=== PATIENT | male | born 1940 | race Caucasian/White ===

== ENCOUNTER 2022-04-17 09:48 | Outpatient (CLI) | payer BC, SELFPAY ==
--- NOTE | 2022-04-17 10:15 | MR_ITS ---
[address] [address] Phone:?[phone] Fax:?[phone] Referring Physician Information: Bill Nash M.D. [address] [facility] [address] Phone:?[phone] Fax:?[phone] Patient:Curt Meyer D.O.B:?1940 Sex:?Male Phone:?[phone] [facility] MRN:?[id number] Exam Date:?04/17/2022 ? EXAM: MRI of the LEFT SHOULDER, without contrast CLINICAL: Left shoulder pain. Evaluate for rotator cuff tear. COMPARISONS: None available. TECHNICAL: MRI sequences of the left shoulder: Axials: PD, PDFS Coronals: PD, T2FS Sagittals: PDFS, T2 SEDATION: None. CONTRAST: None. FINDINGS: Rotator cuff: Supraspinatus/Infraspinatus: There is high-grade partial bursal surface tearing involving the anterior distal supraspinatus tendon involving approximately 75% of the tendon thickness as seen on coronal series 4 images 7-8, with near full- thickness tearing of the mid insertional fibers of the distal supraspinatus tendon on coronal series 4 image 9. Mild partial interstitial tearing of the posterior distal supraspinatus tendon on coronal series 4 images 10-11. There is mild tendinosis of the infraspinatus tendon, without significant tendon tear. No significant fatty atrophy of the muscle bellies. Teres minor: Advanced fatty atrophy of the muscle belly. No significant tendinosis or tendon tear. Subscapularis: There is moderate tendinosis and minimal superimposed partial interstitial tearing of the superior distal tendon seen on sagittal series 8 images 15-16. No significant fatty atrophy of the muscle belly. Bursae: Subacromial-subdeltoid: Moderate bursitis with prominent internal synovitis. Subcoracoid: No convincing subcoracoid bursal thickening/bursitis. Coracoacromial arch: Acromion morphology: Type I. No os acromiale. Acromiohumeral space: Within normal limits. Coracohumeral space: Within normal limits. Biceps tendon, long head: Mild tendinosis of the intra-articular tendon. No significant tendon tear or displacement. Moderate fluid about the imaged proximal extra-articular tendon with a tiny displaced body noted about the imaged proximal extra-articular tendon on axial series 3.2 images 54. Glenohumeral joint: Physiologic volume of joint fluid. Articular cartilage: High-grade/full-thickness chondral loss is seen to involve the glenoid and medial humeral head. Capsule: No convincing evidence of capsular thickening or injury. Labrum: Degenerative changes are seen throughout the entire glenoid labrum. No perilabral cyst identified. Bones: No suspicious marrow signal alteration, fracture or dislocation. Acromioclavicular joint: No acute injury, arthropathy, or inferior hypertrophy. IMPRESSION: 1. Tearing of the distal supraspinatus tendon as above, including high-grade partial bursal surface tearing of the anterior distal supraspinatus tendon and near full-thickness tearing involving the mid insertional fibers of the distal supraspinatus tendon. Mild infraspinatus tendinosis. 2. Moderate subscapularis tendinosis with minimal superimposed partial interstitial tearing of the superior tendon. Advanced fatty atrophy of the teres minor muscle. 3. Moderate subacromial/subdeltoid bursitis with prominent internal synovitis. 4. Mild tendinosis of the intra-articular long head biceps tendon. There is moderate fluid about the imaged proximal extra-articular tendon with a tiny displaced body noted about the imaged proximal extra-articular tendon. 5. High-grade/full-thickness chondral loss involving the glenohumeral joint as above. Degenerative changes throughout the glenoid labrum. JCZ Electronically signed on 04/17/2022 12:52:00 PM by New Mcgraw D.O.
== END 2022-04-17 09:49 | disposition home or self-care (01) ==
LOC: MRI 09:49
PROVIDERS: PCP Family Medicine; Visit Provider Orthopaedic Surgery Sports Medicine
DX: M25.512 Pain in left shoulder (principal); M75.102 Unspecified rotator cuff tear or rupture of left shoulder, not specified as traumatic; M75.22 Bicipital tendinitis, left shoulder; M75.52 Bursitis of left shoulder
CPT/HCPCS: 73221

== ENCOUNTER 2022-05-05 07:33 | Outpatient (CLI) | payer BC, SELFPAY | END 2022-05-05 07:34 | disposition home or self-care (01) | LOC: CT 07:37 | PROVIDERS: PCP Family Medicine; Visit Provider Orthopaedic Surgery Sports Medicine | DX: M19.012 Primary osteoarthritis, left shoulder (principal) | CPT/HCPCS: 73200 ==

== ENCOUNTER 2022-06-04 07:06 | Day surgery (SDC) | payer BC, SELFPAY ==
[2022-06-04] VITALS (23 sets, daily range): BP systolic 130–159; BP diastolic 75–104; PULSE 52–85; RESP 14–24; TEMP 35.8–36.9; O2SAT 95–100; BMI 36.5
[2022-06-04] MEDS: CELECOXIB 200 MG CAPSULE PO (07:25)
[2022-06-04] MEDS: ACETAMINOPHEN 500 MG TABLET 1000 MG PO ×2 (07:25→18:08)
[2022-06-04] MEDS: OXYCODONE (CR) 10 MG TAB.ER.12H PO (07:25)
[2022-06-04] MEDS: SODIUM CHLORIDE 0.9 % (FLUSH) 10 ML SYRINGE IVF (07:53)
[2022-06-04] MEDS: LACTATED RINGERS 1000 ML 1,000 ML 100 ML IV ×2 (07:55→09:54)
--- NOTE | 2022-06-04 08:19 | CRLHL7_ITS ---
For Patients: As a result of the Century Cures Act, medical imaging exams and procedure reports are released immediately into your electronic medical record. You may view this report before your referring provider. If you have questions, please contact your health care provider. Indication: Post op LT SHOULDER ARTHOPLASTY Technique: Three views left shoulder Findings/Impression: Hardware from a left shoulder arthroplasty is in satisfactory position. Bone alignment is normal. No sign of acute fracture. Postop changes are within normal limits. Dictated by Julian Hooks MD @ 06/04/2022 12:57:07 PM (Electronically Signed)
--- NOTE | 2022-06-04 08:46 | SUR.PREOP ---
TIME?OUT:?0848 PT/CORIE RN/Jason CASTELLON MDA?VERIFICATION?OF?SURGICAL?SITE,?PROCEDURE,?AND?CONSENT OBTAINED?PRIOR?TO?INVASIVE?PROCEDURE.
[2022-06-04] MEDS: MIDAZOLAM HCL 1 MG/ML inj IVP (08:50)
[2022-06-04] MEDS: fentaNYL 100 MCG/2 ML inj IVP (08:50)
--- NOTE | 2022-06-04 08:56 | P.NB_ITS ---
Nerve Block Nerve Block Time Seen by Provider: 08:57 Date Seen: 06/04/22 Type of block requested by surgeon for post-operative analgesia: supraclavicular Side: left Time out performed: Yes Verification of patient name: Yes Verification of date of : Yes Site marking: site marked Name of person performing procedure: Héctor Continuous monitoring Was continuous monitoring of O2 sat, B/P, director of patient financial services, recorded every 15 minutes?: Yes Procedure Checklist: sterile prep, needles and gloves Ultrasound guided. Images saved: Yes Medications given in 5ml increments after negative aspiration: Ropivicaine %: 0.5 mL: 20 Needle gauge: 22 Decadron (mg): 10 Precedex (mcg): 25 Patient tolerated procedure well: Yes Block Charges Block Charge (with Pro Fee): Brachial Plexus Use of Ultrasound Machine for Block: Yes- US Guidance/pain block
--- NOTE | 2022-06-04 09:26 | W.ANESCHARGE ---
Anesthesia Charges Start Date/Time Anesthesia Start Date: 06/04/22 Anesthesia Start Time: 09:27 Stop Date/Time Anesthesia Stop Date: 06/04/22 Anesthesia Stop Time: 12:33 Summary Emergency: No Extremes of Age: Over 71-CPT 21283
[2022-06-04] MEDS: CEFAZOLIN 2 GM in 0.9 % SODIUM CHLORIDE Mini-bag 100 ML IVPB ×2 (09:45→16:46)
[2022-06-04] MEDS: TRANEXAMIC ACID 100 MG/ML INJ 1000 MG IV (09:50)
--- NOTE | 2022-06-04 11:41 | P.ORPRC_ITS ---
Procedure Note Date of procedure: 06/04/22 Procedure: PREOPERATIVE DIAGNOSIS: 1. Left shoulder osteoarthrosis, primary, severe with fair rotator quality/integrity POSTOPERATIVE DIAGNOSIS: 1. Left shoulder osteoarthrosis, primary, severe with fair cuff tissue quality PROCEDURE: 1. Left reverse shoulder arthroplasty. SURGEON: Bill Nash MD. COMMUTATOR ASSEMBLER: Epi Chavez PA-C; Patrick CARLSON - Of note, a skilled porcelain buildup assistant was critical for this case to aid in patient positioning, tissue retraction, limb manipulation/positioning, retraction for glenoid exposure, which was challenging, awareness and protection of critical structures, and closure. ANESTHESIA: General plus supraclavicular block IMPLANTS: DJ0 surgical Altivate humeral stem size 12 standard shell, short with P2 porous coating vitamin E neutral poly small socket insert RSP glenoid base plate P2 porous coating with 4 perimeter locking screws 32 neutral glenosphere with retaining screw COMPLICATIONS: None evident INDICATIONS: The patient is a pleasant 81-year-old male who has experienced severe left shoulder pain and difficulty with use. Workup included imaging which revealed severe osteoarthrosis along with concern for rotator cuff quality. Physical exam was consistent with associated pain. Given the deformity, the dysfunction, and the pain, and failure of nonoperative management, recommendation was made for surgery. DESCRIPTION OF PROCEDURE: Following a thorough discussion of risks, benefits, and alternatives, consent was obtained and the left shoulder was marked. The patient was brought to the operating room and placed supine on the operating table. Induction of anesthesia was undertaken. 2 g IV Ancef and 1 g tranexamic acid was administered within 1 hr of incision preoperatively. Appropriate time- out was performed identifying proper patient, site, and procedure. The operative extremity was prepped and draped in the appropriate sterile fashion using ChloraPrep after the patient was positioned in the [facility] chair position with head in neutral alignment and all bony prominences well padded. A longitudinal incision was made for deltopectoral approach. Deltoid was retracted laterally. Cephalic vein was identified and retracted laterally as well. The vein was ligated due to bleeding distally. The clavipectoral fascia was identified and divided longitudinally staying lateral to the conjoined tendon / coracoid. The conjoined tendon was protected with a blunt Hohmann. The long head of biceps tendon was not encountered during this procedure. This would be consistent with a previous rupture. The upper 1/4 of the pectoralis major was also released from its insertion. The rotator cuff was inspected and found to have good integrity with the subscapularis but fair integrity with a supraspinatus], and a decision for a reverse shoulder arthroplasty was confirmed. A subscapularis cuff of tissue was left via tenotomy for later repair with the remaining subscapularis released in a subperiosteal fashion with the Bovie. This was tagged for later repair. The 3 sisters were cauterized. The upper subscapularis was released from the capsule with a curved Marina scissors towards the glenoid. The inferior subscapularis was divided from the capsular tissue on its caudal surface with particular caution for the axillary nerve. This was palpated anterior to the subscapularis both prior to and near the finish of the case. Inferior humeral head osteophytes were excised with caution taken throughout the case with regards to the axillary nerve. The humerus was dislocated, and humeral head cut completed. Then a protector plate was applied. We turned our attention to the glenoid. The humerus was retracted posteriorly. The subscap was protected anteriorly and the labrum/long head biceps origin was excised circumferentially. The capsule was released along the anterior and inferior portions of the glenoid cautiously with a Calvert elevator being careful not to penetrate deep. The glenoid had appropriate exposure, and was prepared with the cannulated system with a target of approximately 5-10? of inferior tilt and neutral anteversion (patient had 8? of retroversion initially). [Utilizing the match Point 3D printed guide, the guide pin was placed. The 3D printed jig removed and after placing the guide pin, the tap was placed followed by the glenoid reaming. The real base plate was opened, and inserted, and excellent compression/purchase was achieved with the central screw. Peripheral screws were then drilled, measured, and placed. The glenosphere was then placed consistent with the preoperative plan utilizing the above noted glenosphere. After securing the glenosphere with the locking, torque limited screw, attention was turned back to the humerus. A canal finder was placed followed by various reamers by hand. The real humeral stem was then opened and inserted with excellent metaphyseal fit and stability. Trial poly was placed and the shoulder reduced. Excellent reduction and stability achieved with appropriate tension on the conjoined tendon. At this stage, trial implants were removed, and the real implants inserted and the shoulder reduced. A 3 minute Betadine soak was performed followed by a thorough irrigation with normal saline. Subscapularis was repaired with #1 PDS to the cuff of tissue on the lesser tuberosity. Excellent reapproximation of tissue achieved. Hemostasis was found to be appropriate. The deltopectoral interval was reapproximated with 0 Vicryl, subcutaneous and subcuticular closure was then performed with number 2-0 Vicryl and 4-0 Monocryl, respectively. A skilled porcelain buildup assistant was critical for this case to aid in patient positioning, tissue retraction, limb manipulation/positioning, retraction for glenoid exposure, which was challenging, awareness and protection of critical structures, and closure. PLAN: 1. Sling at all times for the operative upper extremity. 2. AROM of elbow, forearm, wrist, and digits as tolerated. 3. PT/OT consults for education and assistance. 4. Social consult for discharge planning. 5. 23 hr perioperative antibiotics. 6. Early ambulation, and SCDs for DVT prophylaxis. 7. Admit to the hospital for the above 8. Analgesics p.r.n.
--- NOTE | 2022-06-04 12:32 | W.ANESCHARGE ---
Anesthesia Charges Start Date/Time Anesthesia Start Date: 06/04/22 Anesthesia Start Time: 09:27 Stop Date/Time Anesthesia Stop Date: 06/04/22 Anesthesia Stop Time: 12:33 Summary Emergency: No Extremes of Age: Over 71-CPT [address]4470
--- NOTE | 2022-06-04 15:05 | PC.NURSE ---
End of shift note: Patient was a post op at 1330 today for left total shoulder replacement. PIV is patent and inact. Incision is clean, dry and intact. Lung sounds are clear. Denies pain and nausea. Tolerating PO liquids and food so far. Bowel sounds hypoactive- LBM was this morning. Has not voided yet. Has not been out of bed yet. TEDs and SCDs in place. Fluids running. Plans to return home with tomorrow. CPAP was checked and set up by RT.
--- NOTE | 2022-06-04 15:44 | PM.IMCN1 ---
Date of Consult Consult date: 06/04/22 Requesting Physician: Orthopedics Primary Care Provider: Braden Ramirez MD Consult Narrative Reason for consult: Postoperative management of medical problems Narrative: Rodney Meyer is a 81 year old male admitted to the hospital for left total shoulder arthroplasty. Procedures performed by Dr. Nash on the day of admission. There were no operative complications. Postoperatively he is generally doing well. He reports no significant pain. He was chilled coming out of the operating room but has now warmed up. He has no nausea or dyspnea. Preoperative evaluation did not show any significant issues concerning the perioperative care. Review of Systems Narrative: He has had no recent illness or injury. No other health concerns today. No history of problems with anesthesia, bleeding or clotting. 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 They live in their own home. 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 Code status is full. He does not smoke but has a remote history of smoking, 25 pack years and quit over 10 years ago. He drinks approximately 1 alcoholic beverage per day. 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 Smoking Status: Former smoker What tobacco products do you use: cigarettes Smoking quit date/years: >15 years ago Do you use any of these nicotine containing products: None How often do you have a drink containing alcohol: 2-4 times a month Alcohol type: beer How many standard drinks containing alcohol do you have on a typical day: 1 or 2 AUDIT-C Alcohol total score: 2 Non-prescribed substance use: denies use Caffeine: Yes (coffee, 1 cup/am) Meds Home Medications and Allergies Home Medications Medication Instructions Recorded Confirmed Type aspirin 81 mg tablet,delayed 81 mg PO DAILY 04/07/22 06/04/22 History release evolocumab 140 mg/mL subcutaneous 140 mg subcut Q14D 04/07/22 06/04/22 History pen injector (Brad Celis) ezetimibe 10 mg tablet 10 mg PO DAILY 04/07/22 06/04/22 History gabapentin 300 mg capsule 300 mg PO TID 04/07/22 06/04/22 History hydrochlorothiazide 25 mg tablet 25 mg PO DAILY 04/07/22 06/04/22 History losartan 50 mg tablet 50 mg PO DAILY 04/07/22 06/04/22 History metoprolol succinate 25 mg 25 mg PO DAILY 04/07/22 06/04/22 History tablet,extended release 24 hr omeprazole 20 mg capsule,delayed 20 mg PO DAILY 04/07/22 06/04/22 History release sildenafil 100 mg tablet 100 mg PO DAILY PRN 04/07/22 06/04/22 History albuterol sulfate 90 mcg/actuation 2 inh inhalation Q4H PRN 06/03/22 06/04/22 History aerosol inhaler (Ventolin HFA) cholecalciferol (vitamin D3) 50 50 mcg PO DAILY 06/03/22 06/04/22 History mcg (2,000 unit) tablet (Vitamin D3) nitroglycerin 0.4 mg sublingual 0.4 mg sublingual Q5-15M PRN 06/03/22 06/04/22 History tablet Home Medication Comments: He held all of his morning medications except metoprolol. He takes evolucamab every 14 days. Today would be his normal day but he did not take it because of surgery today. He can resume this after he returns home. Allergies Allergy/AdvReac Type Severity Reaction Status Date / Time [id number] Reductase Allergy Myalgia Verified 06/04/22 07:48 Inhibitor pregabalin AdvReac Edema Verified 06/04/22 07:48 Exam Narrative: Exam Narrative: He is alert and appears in no distress. He is pleasant and oriented to his circumstances. He gives his own history. Oropharynx is notable for a very small airway. Neck is supple without mass or adenopathy or tenderness. Respirations are clear to auscultation. Cardiovascular: S1, S2, 2/6 early highpitch systolic ejection murmur heard best at right upper sternal border but also the left lower sternal border. No gallop or rub. Regular rate and rhythm. Abdomen is soft without tenderness or mass. Left upper extremity has intact sensation and he can move his left hand although sensation and strength are altered his hand is warm to touch in his radial pulses strong. Lower extremities with intact pulses, sensation, strength. No edema. Const: Vital Signs, click to edit/add: Vital Signs - 24 hr 06/04/22 07:50 06/04/22 08:45 06/04/22 08:57 Temperature 97.8 F Pulse Rate 74 52 L 56 L Pulse Rate [Pulse Oximeter] Respiratory Rate 24 20 20 Blood Pressure 153/104 H 151/99 H 144/102 H Blood Pressure [Ri ght Arm] Pulse Oximetry 95 98 98 Oxygen Delivery Me thod Room Air Nasal Cannula Nasal Cannula Oxygen Flow Rate 2 2 06/04/22 12:30 06/04/22 12:35 06/04/22 12:55 Temperature 97.4 F L Pulse Rate 65 67 61 Pulse Rate [Pulse Oximeter] Respiratory Rate 14 14 14 Blood Pressure 140/80 H 147/75 H 131/78 Blood Pressure [Ri ght Arm] Pulse Oximetry 99 98 98 Oxygen Delivery Me thod Room Air OxyMask Room Air OxyMask Room Air OxyMask Oxygen Flow Rate 4 4 4 06/04/22 12:40 06/04/22 12:45 06/04/22 12:50 Temperature Pulse Rate 66 66 66 Pulse Rate [Pulse Oximeter] Respiratory Rate 14 14 14 Blood Pressure 141/89 H 151/88 H 130/90 H Blood Pressure [Ri ght Arm] Pulse Oximetry 99 99 99 Oxygen Delivery Me thod Room Air OxyMask Room Air OxyMask Room Air OxyMask Oxygen Flow Rate 4 4 4 06/04/22 13:00 06/04/22 13:05 06/04/22 13:10 Temperature 97.2 F L Pulse Rate 63 66 62 Pulse Rate [Pulse Oximeter] Respiratory Rate 14 14 14 Blood Pressure 138/81 136/77 134/76 Blood Pressure [Ri ght Arm] Pulse Oximetry 99 99 98 Oxygen Delivery Me thod Room Air OxyMask Room Air OxyMask Room Air OxyMask Oxygen Flow Rate 4 4 4 06/04/22 13:27 06/04/22 13:45 06/04/22 14:00 Temperature 96.6 F L 96.5 F L Pulse Rate 67 Pulse Rate [Pulse Oximeter] 59 L 66 Respiratory Rate 16 16 16 Blood Pressure Blood Pressure [Ri ght Arm] 132/78 142/90 H 148/90 H Pulse Oximetry 99 99 Oxygen Delivery Me thod Room Air Room Air Room Air Oxygen Flow Rate 06/04/22 14:15 06/04/22 14:30 06/04/22 15:00 Temperature 96.8 F L 96.6 F L Pulse Rate Pulse Rate [Pulse Oximeter] 64 66 66 Respiratory Rate 16 16 16 Blood Pressure Blood Pressure [Ri ght Arm] 132/78 154/91 H 159/92 H Pulse Oximetry 99 100 100 Oxygen Delivery Me thod Room Air Room Air Room Air Oxygen Flow Rate Documenting provider has reviewed patient's vital signs: yes Assessment and Plan Assessment and plan (1) Osteoarthritis of left shoulder: Problem comment: Moderate-severe. Status post left shoulder arthroplasty generally doing well. Anticipate uncomplicated recovery with routine management of pain and therapy. Status: Acute (2) Heart murmur: Problem comment: Clinically appears to be aortic stenosis. Echo from December of 2020 shows mild aortic stenosis and mild mitral regurgitation. Preserved ejection fraction. Patient is asymptomatic. No further evaluation warranted at this time. Status: Acute (3) CAD (coronary artery disease): Problem comment: Currently asymptomatic Status: Acute (4) Hyperlipidemia: Problem comment: Resume evolucamab when he gets home Status: Acute Plan Routine postoperative care including pain management and therapy. Restart his normal medications. Total time spent today is 35 minutes, 20 minutes in coordination of care discussed with patient and his ongoing evaluation management of medical problems in the context of shoulder surgery.
[2022-06-04] MEDS: LACTATED RINGERS 1000 ML 1,000 ML 75 ML IV (15:57)
[2022-06-04] MEDS: SENNOSIDES 1 TAB TABLET 2 TAB PO (21:04)
[2022-06-04] MEDS: GABAPENTIN 300 MG CAPSULE PO (21:04)
--- NOTE | 2022-06-04 23:18 | PC.NURSE ---
End of Shift ([id number]): Patient pleasant and cooperative. Afebrile. Denies pain. Dressing to left shoulder C/D/I, CMS intact. Up to chair and bathroom with SBA and gait belt. Walked in hallway x1. Tolerating regular diet with no nausea.
[2022-06-05] VITALS: BP 129/78; PULSE 81; RESP 20; TEMP 36.5; O2SAT 95
[2022-06-05] MEDS: CEFAZOLIN 2 GM in 0.9 % SODIUM CHLORIDE Mini-bag 100 ML IVPB ×2 (00:02→08:27)
[2022-06-05] MEDS: ACETAMINOPHEN 500 MG TABLET 1000 MG PO ×2 (00:03→06:14)
[2022-06-05 04:55] VITALS: BP 131/80; PULSE 85; RESP 20; TEMP 36.8; O2SAT 100
--- NOTE | 2022-06-05 05:37 | PC.NURSE ---
Shift note: The left shoulder dressing has been C/D/I- The pt has been denying pain to the left shoulder, radial pulse has been palpable and capillary refill has been less than three second. Using polar ice to the left shoulder throughout the shift. The pt appeared without any distress- denied chest pain and short of breath.
[2022-06-05 07:06] LABS: Hematocrit 40.6 % (37.0-53.0); Hemoglobin* 13.9 gm/dL (13.5-17.5); Mean Corpuscular HGB Conc 34 gm/dL (32-36); Mean Corpuscular Hemoglobin 34 pg (26-34); Mean Corpuscular Volume 100 fL (80-100); Platelet Count* 171 K/uL (140-440); Red Blood Count 4.08 m/uL (4.30-5.90); White Blood Count* 9.97 K/uL (4.50-11.00)
[2022-06-05 07:08] LABS: Slide Review Reflex No
[2022-06-05 07:23] LABS: Sodium* 137 mmol/L (135-149)
[2022-06-05 07:24] LABS: Potassium* 5.2 mmol/L (3.6-5.1)
[2022-06-05 07:26] LABS: Creatinine* 1.3 mg/dL (0.5-1.5); Est. Creatinine Clearance* 45.32; Estimated Glomerular Filt Rate 56 ml/min
[2022-06-05 07:27] LABS: Blood Urea Nitrogen* 35 mg/dL (7-30)
[2022-06-05 08:15] VITALS: BP 129/80; PULSE 76; RESP 18; TEMP 37; O2SAT 100
[2022-06-05] MEDS: SENNOSIDES 1 TAB TABLET 2 TAB PO (08:29)
[2022-06-05] MEDS: EZETIMIBE 10 MG TABLET PO (08:29)
[2022-06-05] MEDS: OMEPRAZOLE 20 MG CAPSULE DR PO (08:29)
[2022-06-05] MEDS: hydroCHLOROthiazide 25 MG TABLET PO (08:29)
[2022-06-05] MEDS: METOPROLOL SUCCINATE (XL) 25 MG TAB PO (08:29)
[2022-06-05] MEDS: LOSARTAN POTASSIUM 50 MG TABLET PO (08:29)
[2022-06-05] MEDS: GABAPENTIN 300 MG CAPSULE PO (08:29)
--- NOTE | 2022-06-05 14:18 | PM.ORPN ---
Subjective Subjective Date Seen: 06/05/22 Principal diagnosis: Status postop day 1 left reverse total shoulder arthroplasty Interval history: Patient reports doing well. No acute events over night. Pain managed with scheduled /PRN medications and ice. Has not been taking oxycodone. Reports the nerve block is wearing off. No pain. DVT prophylaxis bilateral knee high Paul stockings, and SCDs. Denies fevers, chills, aches, N/V, CP, SOB/STEVENSON, tachycardia, or lightheadedness Ortho Exam Narrative Exam Narrative: -Patient appears comfortable in recliner; no apparent acute distress -Alert and oriented times 3 -Eyes: PERRL -Operative shoulder swollen; soft, supple tissues; no obvious erythema. Ecchymosis minimal. Warmth appropriate -Surgical dressing clean, dry, intact; no obvious drainage, no erythematous streaking peripheral to the bandage -Bilateral calves soft and supple; no significant swelling, edema, tenderness, erythema, discoloration, warmth, or palpable cords -2+ radial pulse, intact dermatomes and myotomes distally (5/5 strength). Specifically axillary nerve intact Const Vital Signs, click to edit/add: Vital Signs - 24 hr 06/04/22 14:30 06/04/22 15:00 06/04/22 15:30 Temperature 96.6 F L 97.6 F Pulse Rate [Left Radial] Pulse Rate [Pulse Oximeter] 66 66 76 Respiratory Rate 16 16 18 Blood Pressure [Right Arm] 154/91 H 159/92 H 132/88 Pulse Oximetry 100 100 99 Oxygen Delivery Method Room Air Room Air Room Air 06/04/22 16:30 06/04/22 17:30 06/04/22 15:00 Temperature 97.0 F L Pulse Rate [Left Radial] Pulse Rate [Pulse Oximeter] 81 75 Respiratory Rate 18 18 18 Blood Pressure [Right Arm] 148/85 H 148/95 H Pulse Oximetry 98 99 Oxygen Delivery Method Room Air Room Air 06/04/22 19:42 06/04/22 18:30 06/05/22 00:00 Temperature 98.5 F 97.5 F L Pulse Rate [Left Radial] 85 81 81 Pulse Rate [Pulse Oximeter] 81 Respiratory Rate 20 18 20 Blood Pressure [Right Arm] 153/96 H 145/84 H Pulse Oximetry 99 Oxygen Delivery Method Room Air 06/05/22 00:00 06/05/22 04:55 06/05/22 08:15 Temperature 97.7 F 98.3 F 98.6 F Pulse Rate [Left Radial] 81 85 76 Pulse Rate [Pulse Oximeter] 81 85 Respiratory Rate 20 20 18 Blood Pressure [Right Arm] 129/78 131/80 129/80 Pulse Oximetry 95 100 100 Oxygen Delivery Method Room Air Room Air Room Air Assessment and Plan Assessment and plan (1) Status post replacement of left shoulder joint: Problem details: POD 1 left reverse total shoulder arthroplasty Status: Acute (2) Osteoarthritis of left shoulder: Status: Acute (3) Heart murmur: Problem details: Clinically appears to be aortic stenosis. Echo from December of 2020 shows mild aortic stenosis and mild mitral regurgitation. Preserved ejection fraction. Patient is asymptomatic. No further evaluation warranted at this time. Status: Acute (4) CAD (coronary artery disease): Problem details: Currently asymptomatic Status: Acute (5) Hyperlipidemia: Problem details: Resume evolucamab when he gets home Status: Acute Plan - Complete 23 hour perioperative antibiotics. - PT/OT consult for education and assistance. - Social work consult for discharge planning - Prescribed analgesics as needed - DVT prophylaxis: Bilateral knee high Paul Hose stockings and SCDs - Anticipation is for discharge to home with spouse 06/05/2022 if the patient remains medically stable, pain is controlled, and they are safe with mobilization.
--- NOTE | 2022-06-05 14:21 | P.DS_ITS ---
DS: Providers Provider Date Seen: 06/05/22 Date of admission: Med/Surg Recovery 06/04/2022 Primary care physician: Braden Ramirez MD Consults: 06/04/22 13:26 Consult to Occupational Therapy [CONS] Routine Comment: Reason(s) for OT Consult:: Evaluate and Treat Any Restrictions?:: See Comment Comment: ROM elbow, forearm, wrist, digits PRN Shoulder pendulums okay No active shoulder ROM Consult to Physical Therapy [CONS] Routine Comment: Reason(s) for PT Consult:: Evaluate and Treat Any Restrictions?:: No Restrictions Consult to Physician [CONS] Routine Comment: Consulting Provider: Hospitalists Has provider been notified: No Consult to Supervisor Properties [CONS] Routine Comment: Reason for Consult:: Discharge Planning Needs Attending Physician on discharge: Bill Nash MD Date of Discharge: 06/05/22 DS: Diagnosis Discharge Diagnosis (1) Osteoarthritis of left shoulder: Status: Acute (2) Status post replacement of left shoulder joint: Status: Acute Problem details: POD 1 left reverse total shoulder arthroplasty DS: Summary Hospital Course Hospital Course: The patient has a history of left shoulder osteoarthritis, primary, severe. After appropriate preoperative evaluation, the patient underwent left reverse total shoulder arthroplasty. Postoperatively they progressed to PT/OT and were felt ready and prepared for discharge to home with appropriate pain medication and anticoagulation medications. Status at Discharge Functional status at discharge: independent ambulation Time Spent with Patient Time attestation: Total time spent providing and/or coordinating discharge services: Exam Const: Vital Signs, click to edit/add: Vital Signs - 24 hr 06/04/22 14:30 06/04/22 15:00 06/04/22 15:30 Temperature 96.6 F L 97.6 F Pulse Rate [Left R adial] Pulse Rate [Pulse Oximeter] 66 66 76 Respiratory Rate 16 16 18 Blood Pressure [Ri ght Arm] 154/91 H 159/92 H 132/88 Pulse Oximetry 100 100 99 Oxygen Delivery Me thod Room Air Room Air Room Air 06/04/22 16:30 06/04/22 17:30 06/04/22 15:00 Temperature 97.0 F L Pulse Rate [Left R adial] Pulse Rate [Pulse Oximeter] 81 75 Respiratory Rate 18 18 18 Blood Pressure [Ri ght Arm] 148/85 H 148/95 H Pulse Oximetry 98 99 Oxygen Delivery Me thod Room Air Room Air 06/04/22 19:42 06/04/22 18:30 06/05/22 00:00 Temperature 98.5 F 97.5 F L Pulse Rate [Left R adial] 85 81 81 Pulse Rate [Pulse Oximeter] 81 Respiratory Rate 20 18 20 Blood Pressure [Ri ght Arm] 153/96 H 145/84 H Pulse Oximetry 99 Oxygen Delivery Me thod Room Air 06/05/22 00:00 06/05/22 04:55 06/05/22 08:15 Temperature 97.7 F 98.3 F 98.6 F Pulse Rate [Left R adial] 81 85 76 Pulse Rate [Pulse Oximeter] 81 85 Respiratory Rate 20 20 18 Blood Pressure [Ri ght Arm] 129/78 131/80 129/80 Pulse Oximetry 95 100 100 Oxygen Delivery Me thod Room Air Room Air Room Air DS: Data Data Completed and Pending Labs on day of discharge: Labs from last 24 hours 06/05/22 06/05/22 06:58 06:58 WBC 9.97 RBC 4.08 L Hgb 13.9 Hct 40.6 MCV 100 MCH 34 MCHC 34 Plt Count 171 Sodium 137 Potassium 5.2 H BUN 35 H Creatinine 1.3 Estimated Creat Clear 45.32 Estimated GFR 56 Discharge Plan Discharge Disposition: Home, Self-Care Discharging Surgeon: Bill Nash Follow-Up Appointment: 1 week PO with [facility] Prescriptions: New sennosides-docusate sodium [Senna-S] 8.6-50 mg tablet 1 - 4 tab-cap PO BID PRN (Reason: constipation) Qty: 60 0RF Rx Instructions: Hold medication if experiencing loose stools. acetaminophen 500 mg capsule 500 - 1,000 mg PO Q6H MDD 4000mg PRNQty: 100 0RF oxycodone 5 mg tablet 2.5 - 5 mg PO Q4-6H MDD 6 PRN (Reason: pain) Qty: 42 0RF Rx Instructions: Take as needed for postop pain: 2.5mg mild pain, 5mg moderate-severe pain; wean as tolerated. Continued sildenafil 100 mg tablet 100 mg PO DAILY PRN Label Comments: TAKE ONE TABLET BY MOUTH 1 HOUR BEFORE INTERCOURSE. DO NOT USE WITHIN 24 HOURS OF NITROGLYCERIN Repatha SureClick 140 mg/mL pen injector 140 mg subcut Q14D metoprolol succinate 25 mg tablet extended release 24 hr 25 mg PO DAILY losartan 50 mg tablet 50 mg PO DAILY ezetimibe 10 mg tablet 10 mg PO DAILY gabapentin 300 mg capsule 300 mg PO TID hydrochlorothiazide 25 mg tablet 25 mg PO DAILY omeprazole 20 mg capsule,delayed release(DR/EC) 20 mg PO DAILY aspirin 81 mg tablet,delayed release (DR/EC) 81 mg PO DAILY albuterol sulfate [Ventolin HFA] 90 mcg/actuation HFA aerosol inhaler 2 inh inhalation Q4H PRN cholecalciferol (vitamin D3) [Vitamin D3] 50 mcg (2,000 unit) tablet 50 mcg PO DAILY nitroglycerin 0.4 mg tablet, sublingual 0.4 mg sublingual Q5-15M PRN Rx Instructions: do not exceed 3 doses per episode Activity Level: Activity as Tolerated Activity Detail: No weight-bearing left upper extremity. Continuous sling use unless performing elbow range of motion/pendulums, and to shower. Patient Instructions: Acetaminophen (By mouth), Oxycodone, Rapid Release (By mouth), Senna (By mouth), Surgical Site Infections (DC), Shoulder Arthroplasty (DC) Additional Instructions: Wound: ?Do not remove original dressing; we will remove this at first postop visit in 1 week. Only remove dressing if integrity is in question. ?No immersing wound in water; showering okay; light scrub with your hand and body soap, rinse, dab dry ?Sutures are under the skin, will dissolve; allow surgical glue to come off naturally; do not scrub the wound or apply ointments/lotions ?Call our office with any redness that streaks, excessive drainage from the wound, or wound gapping. Ice/Elevate: ?Ice as needed for swelling and discomfort (cryocuff or ice pack); elevate hand/forearm about heart if possible NELSON socks: ?Wear for 1 month, remove for 1 hour 3 times per day ?These are frustrating to take on/off, but are important for blood clot prevention for 1 month after surgery even though this was an upper extremity surgery. Driving: ?Do not drive while taking narcotic pain medication ?Anticipate a few weeks of no driving if you feel uncomfortable driving with one arm Dental: ?No elective dental work for 6 months post-op. If there is an urgent/emergent dental need, contact our office for an antibiotic prescription. Smoking/Alcohol: ?Do not smoke; do no drink alcohol especially when taking postoperative oral narcotic medication Seek Care from you Primary Care Provider if you experience the following issues in the postoperative phase and beyond: ?Bacterial infections such as: pneumonia, bacterial skin infection (cellulitis), UTI, high fever, chills unrelated to the operative body part - call your primary care physician urgently for treatment in hopes to protect your health and the metal implant. Referrals: ?PT, OT per patient preference - evaluate treat [reverse/anatomic] total shou lder arthroplasty protocol (ROM, ADLs) Follow up: ?Ortho surgeon follow-up in 6 weeks; repeat radiographs three views operative shoulder ?PA-C visit in 1 week *If there are any acute concerns regarding your surgery, please call our orthopedic clinic ([phone]) Forms: Work/Release Restrictions [facility]] - 06/19/22 10:00 am Amber Chase PA-C [Physician Superintendent Refuse Disposal] - 06/11/22 12:20 pm Braden Ramirez MD [Primary Care Provider] - (Schedule appointment as needed) Discharge Orders: Discharge Order (Routine); Ordered 06/05/22 Ordered By: Epi Chavez
== END 2022-06-05 11:12 | disposition home or self-care (01) ==
LOC: OR 07:09 → MEDSURG 08:02
PROVIDERS: PCP Family Medicine; Visit Provider Orthopaedic Surgery Sports Medicine
PROC: 0RRJ0JZ Replacement of Right Shoulder Joint with Synthetic Substitute, Open Approach (ICD-10-PCS; CPT 23472; principal; 2022-06-04 09:00)
DX: M19.012 Primary osteoarthritis, left shoulder (principal); M25.512 Pain in left shoulder; R01.1 Cardiac murmur, unspecified; I25.10 Atherosclerotic heart disease of native coronary artery without angina pectoris; E78.5 Hyperlipidemia, unspecified; J44.9 Chronic obstructive pulmonary disease, unspecified; K21.9 Gastro-esophageal reflux disease without esophagitis; I10 Essential (primary) hypertension; I08.0 Rheumatic disorders of both mitral and aortic valves
CPT/HCPCS: 23472; 1638; 36415; 64415; 73030; 76942; 82565; 84132; 84295; 84520; 85027; 97110; 97116; 97161; 97165; 97535; 99100; A9270; C1713; C1776; J0330; J0690; J1100; J2250; J2370; J2405; J2704; J2795; J3010; J3490; J7120

== ENCOUNTER 2022-07-31 14:00 | Outpatient (RCR) | payer BC, SELFPAY ==
--- NOTE | 2022-05-27 15:16 | OT.OPGNE ---
OT Outpatient General/Neuro Eval OT Outpatient General/Neuro Eval Start: 05/23/22 16:14 Freq: Status: Active Protocol: Document 05/23/22 16:14 CHRIS (Rec: 05/23/22 16:25 CHRIS [id number]) E-signed By Belle Stein OT Outpatient Evaluation Details Type Type Eval Complexity Low Insurance Information Insurance Information Insurance Information Blue [employer] Outpatient History/Precautions Medical/Functional History Medical History Reviewed Yes Prior Level of Function/Mobility Living at home with spouse, I in ADLS, IADLS, still drives Current Condition Treatment Diagnosis L TSA, L shoulder pain Social History Type of Dwelling Rambler Home Number of Floors (Floors) 2 Number of Stairs to Enter (Stairs) 1 Lives With: Spouse Physical Barriers in Home Environment Level, No Step Employment Status Retired 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 Pt has past dx heart condition, hypertension, respiratory problems (wears CPAP at night) . Patient Subjective Subjective Patient Subjective Pt was conversational and pleasant. Asks questions pertaining to eval and speaks about his family/living situation with spouse. Spouse will be present during recovery. Pain Assessment Pain Left Shoulder Pain Description Chronic,Stabbing,With Movement Pain Description Other Pt reports pain in L shoulde with shoulder flexion above 90 degrees Home Maintenance Assessment ADL Oral Care Ability Independent Bathing Ability Independent Eating (Feeding) Ability Independent Upper Body Dressing Ability Independent Lower Body Dressing Ability Independent Grooming Ability Independent Toileting Ability Independent Ambulation Ability Independent Home Management Meal Preparation Ability Independent Cleaning Ability Independent Shopping Ability Independent Assistance Assistance Currently Received Completes ADLs and IADLS I. Assessment Assessment Assessment Pt is a 81 y/o male receiving L reverse TSA sx 06/04/[address] Blackwood at [facility]. Past R rotator cuff sx and LE ortho sxs, CVA (25 years ago), heart condition, hypertension and respiratory problems (CPAP at night). Pt lives in rambler style home with spouse who will be present during recovery to assist prn. Pt I in ADLs and IADLs prior to sx, no AD. Pt has area to sleep on recliner and bathroom on main level, bathroom equipped with walk in shower, grab bars and grab bars near toilet. Pt was educated on donning sling, precautions, dressing techniques and UE HEP. Pt is familiar with information from past R shoulder sx and was receptive to educational handouts provided. Pt should be appropriate to return home for remainder of recovery following overnight stay in the hospital. Shreya Mims, OT/L Occupational Therapy Treatment Plan - OP Potential Rehabilitation Potential Excellent Set Goals Goals Set with Patient No Goals Goals During OT pre op appt, pt will .. 1. practice donning/doffing sling- goal met 05/23/22 2. be educated on UE HEP- goal met 05/23/22 3. answer eval questions related to home set up- goal met 05/23/22 4. be educated on shoulder precautions following sx- goal met 05/23/22 Progress met Treatment Plan Treatment Plan Evaluation,Education Comment Summary Pt educated on L TSA sx and recovery process. Pt shoulder be appropriate to return home for remainder of recovery following overnight stay in the hospital. Certification Certification I Certify That: Therapy Services Provided, Therapy Plan Established, Therapy Plan Reviewed
--- NOTE | 2022-06-19 10:55 | PT.OPEX ---
PT [facility] Eval PT [facility] Outpatient Eval Start: 06/19/22 08:57 Freq: Status: Active Protocol: Document 06/19/22 08:58 AGUSTINA (Rec: 06/19/22 10:52 AGUSTINA [id number]) E-signed By David Yi, PT Physical Therapy Outpatient Evaluation Insurance Information Insurance Name Medicare B,Blue Cross/Blue Shield Medical Diagnosis Left shoulder RTSA Treating Diagnosis Left shoulder pain Decreased left shoulder ROM and strength Referring MD Nash Subjective Subjective Pt. states he had a history of left shoulder OA and then took a fall about 4 months ago which speeded up the need for surgery. He had surgery on 06/04/22 and things have gone well thus far. He is wearing the immobilizer and doing the codmans as instructed. He isn' t taking any pain meds other than advil currently. He is very active overall, so he is anxious to get back to being able to use his left arm. PMH includes; Arthritis, low back COPD (chronic obstructive pulmonary disease) GERD (gastroesophageal reflux disease) Heart attack 2020 Heart murmur Hyperlipidemia Hypertension Osteoarthritis of left glenohumeral joint Rotator cuff tear, left Sleep apnea Stroke Pain Comments mild Date of Surgery (If applicable) 06/04/22 Current Work Status Retired Preferred Name Rodney Objective Range of Motion Left shoulder PROM: flexion 110 deg; ER to neutral per orders; abduction to 85 deg. Strength NA Swelling mild Assessment Assessment/Impression Objectively, pt. demonstrates; 110 degrees of left shoulder flexion passively; 85 degrees of passive left shoulder abduction; neutral left shoulder ER due subscapularis repair; rounded shoulders posture; scapular deconditioning; and normal left elbow, wrist and hand AROM. He would benefit from skilled therapy working on progressive ROM and strength protocol per Ortho orders. Primary Functional Limitations lifting, reaching, dressing Plan of Care Rehabilitation Potential Excellent Physical Therapy Goals 1. Pt. will be indep. with HEP for self maintenance in 8 weeks. 2. Pt. will demonstrate improved shoulder ROM to functional levels passively in 4 weeks. 3. Pt. will be able to raise arm over shoulder height for ADL's without difficulty in 8 weeks. Coordination/Communication With Referral Source Treatment Plan/Direct Interventions Manual Therapy,Orthotics/ Braces,Therapeutic Activities, Therapeutic Exercises Frequency/Duration 1-2 times a week for 8 weeks. Patient Will Be Discharged From Therapy Independent w/HEP, Independently Progressing Evaluation Billing Complexity Moderate Certification Information Physician Comment/Change : Physician NPI Number #
== END 2022-11-04 10:15 | disposition home or self-care (01) ==
PROVIDERS: PCP Family Medicine; Visit Provider Orthopaedic Surgery Sports Medicine
DX: M19.012 Primary osteoarthritis, left shoulder (principal); Z96.619 Presence of unspecified artificial shoulder joint; M25.512 Pain in left shoulder; Z51.89 Encounter for other specified aftercare
CPT/HCPCS: 97110; 97162; 97165; 97535

== ENCOUNTER 2022-09-22 11:31 | Outpatient (CLI) | payer BC, SELFPAY | END 2022-09-22 11:32 | disposition home or self-care (01) | PROVIDERS: PCP Family Medicine; Visit Provider Internal Medicine Gastroenterology | DX: Z12.11 Encounter for screening for malignant neoplasm of colon (principal); K57.30 Diverticulosis of large intestine without perforation or abscess without bleeding; K62.1 Rectal polyp; Z86.010 Personal history of colon polyps | CPT/HCPCS: 45380; 88305; J2250; J3010 ==

== ENCOUNTER 2025-01-15 19:52 | Outpatient (CLI) | payer OTHER, SELFPAY ==
--- OUTSIDE RECORDS SUMMARY | 2025-01-16 17:41 | XMS_ITS | Clinical Summary ---
Author Organization [facility] Address [address] , [address] [place] [address] Phone Care Team Providers Care Single Pass Soil Stabilizer Operator Name Role Phone Clyde Frank MD Conditions or Problems Problem Name Problem Code Onset Date Status Entry Date Provider Comment Standard Description Annotate Neuropathic pain [id number] (SNOMED CT) Active 12/19 Clyde Frank MD Neuropathic pain Peripheral polyneuropathy [id number] (SNOMED CT) Active 12/19 Clyde Frank MD Peripheral nerve disease Medications Medication Instructions Start Date Stop Date Generic Name NDC Provider GABAPENTIN 300 MG CAPS Take 2 capsule by mouth three times a day gabapentin [id number] Clyde Frank MD GABAPENTIN 600 MG TABS Take 1 tablet by mouth three times a day PLEASE CALL TO SCHEDULE AN APPOINTMENT: [phone] gabapentin [phone] Clyde Frank MD GABAPENTIN 300 MG CAPS Take 2 capsule by mouth three times a day gabapentin [id number] Clyde Frank MD VITAMIN B-12 1000 MCG TABS Take 1 tablet by mouth once a day cyanocobalamin (vitamin b-12) [id number] Mary Iniguez POULTRY SLAUGHTERER, AAMA GABAPENTIN 300 MG CAPS Take 2 capsule by mouth three times a day gabapentin [phone] Akbar Nava LPN GABAPENTIN 300 MG CAPS Take 2 capsule by mouth three times a day TAKE ONE CAPSULE BY MOUTH THREE TIMES DAILY gabapentin [phone] Clyde Frank MD Medications Administered No information [...] Procedures Code Procedure Name Date Entry Date [facility]-[id number] Documentation of current medicatio ns ORDERS Homocysteine ORDERS Methylmalonic Acid Serum (MMA) ORDERS Patient Instructions Vital Signs No information available. Immunizations No information available. Advance Directives No information available.
--- OUTSIDE RECORDS SUMMARY | 2025-01-17 01:41 | XMS_ITS | Clinical Summary ---
Author Organization [facility] Address [address] , [address] [place] [address] Phone Care Team Providers Care Bit Tripoler Name Role Phone Clyde Frank MD Conditions or Problems Problem Name Problem Code Onset Date Status Entry Date Provider Comment Standard Description Annotate Neuropathic pain [id number] (SNOMED CT) Active 12/19 Clyde Frank MD Neuropathic pain Peripheral polyneuropathy 727019756 (SNOMED CT) Active 12/19 Clyde Frank MD Peripheral nerve disease Medications Medication Instructions Start Date Stop Date Generic Name NDC Provider GABAPENTIN 300 MG CAPS Take 2 capsule by mouth three times a day gabapentin [id number] Clyde Frank MD GABAPENTIN 600 MG TABS Take 1 tablet by mouth three times a day PLEASE CALL TO SCHEDULE AN APPOINTMENT: [phone] gabapentin [phone] Clyde Frank MD GABAPENTIN 300 MG CAPS Take 2 capsule by mouth three times a day gabapentin [phone] lCyde Frank MD VITAMIN B-12 1000 MCG TABS Take 1 tablet by mouth once a day cyanocobalamin (vitamin b-12) [id number] Mary Iniguez SECURITY INCIDENT RESPONSE SPECIALIST, AAMA GABAPENTIN 300 MG CAPS Take 2 capsule by mouth three times a day gabapentin [phone] Akbar Nava LPN GABAPENTIN 300 MG CAPS Take 2 capsule by mouth three times a day TAKE ONE CAPSULE BY MOUTH THREE TIMES DAILY gabapentin [phone] Clyde Frank MD Medications Administered No information [...] Procedures Code Procedure Name Date Entry Date [facility]-[id number] Documentation of current medicatio ns ORDERS Homocysteine ORDERS Methylmalonic Acid Serum (MMA) ORDERS Patient Instructions Vital Signs No information available. Immunizations No information available. Advance Directives No information available.
--- OUTSIDE RECORDS SUMMARY | 2025-01-17 01:44 | XMS_ITS | Clinical Summary ---
Author Organization [facility] Address [address] [place] [address] Care Team Providers Care Psychologist Social Name Role Phone Braden Ramirez Primary Care Provider [phone] Allergies No known active allergies Medications omeprazole [...] this topic Medical Devices Implanted Type Area Information Technology Professor Device Identifier Shelf Expiration Date Model / Serial / Lot Graft Bone Infuse Bmp Xsm [id number] - [id number] Implanted:Qt y: 1 on 10/07/2023 by Miguel Warren MD at [facility] Bone/Tissue Synthetic Right: Spine Lumbar [employer] 09/16/2024 [id number] / / [id number] Graft Bone Magnetos 1-2 Mm 10 Cc Allograft Gran 703-038-Us - [id number] Implanted:Qt y: 1 on 10/07/2023 by Miguel Warren MD at [facility] Bone/Tissue Synthetic N/A: Spine Lumbar [employer] [id number] 09/18/2027 703-038-US / / [id number] Imp Spi Interbody Medt [address] Long 11mm 7248718 - [id number] Implanted:Qt y: 1 on 03/25/2023 by Miguel Warren MD at [facility] Metallic Hardware/Anc hor Left: Spine Lumbar [employer] [id number] 04/25/2030 [id number] / / [id number] Imp Spi Interbody Medt [address] Long 11mm 5468531 - [id number] Implanted:Qt y: 1 on 06/29/2023 by Miguel Warren MD at [facility] Metallic Hardware/Anc hor N/A: Spine Lumbar [employer] 03/06/2031 [id number] / / [id number] Imp Spi Interbody Medt [address] Long 11mm 1000184 - [id number] Implanted:Qt y: 1 on 10/07/2023 by Miguel Warren MD at [facility] Metallic Hardware/Anc hor N/A: Spine Lumbar [employer] 10/29/2030 [id number] / / [id number] Imp Scr Medt Tsrh 3dx Og Thin 8.5x45mm Ti 53090503 - [id number] Implanted:Qt y: 1 on 10/07/2023 by Miguel Warren MD at [facility] Metallic Hardware/Anc hor N/A: Spine Lumbar [employer] [id number] / / NA Imp Scr Medt Tsrh 3dx Og Thin 8.5x50mm Ti [id number] - [id number] Implanted:Qt y: 1 on 10/07/2023 by Miguel Warren MD at [facility] Metallic Hardware/Anc hor N/A: Spine Lumbar [employer] 87654417 / / NA Imp Scr Medt Tsrh 3dx Og Thin 6.5x50mm Ti [id number] - [id number] Implanted:Qt y: 1 on 10/07/2023 by Miguel Warren MD at [facility] Metallic Hardware/Anc hor N/A: Spine Lumbar [employer] [id number] / / NA Imp Scr Medt Tsrh 3dx Og Thin 7.5x45mm Ti 74530063 - [id number] Implanted:Qt y: 1 on 10/07/2023 by Miguel Warren MD at [facility] Metallic Hardware/Anc hor N/A: Spine Lumbar [employer] [id number] / / NA Tsrh 8.5x55 Screw Implanted:Qt y: 2 on 10/07/2023 by Miguel Warren MD at [facility] Metallic Hardware/Anc hor N/A: Spine Lumbar [employer] [id number] / / NA Imp Scr Set Medt Tsrh 3dx Flush Break 6372822 - [id number] Implanted:Qt y: 6 on 10/07/2023 by Miguel Warren MD at [facility] Metallic Hardware/Anc hor N/A: Spine Lumbar [employer] 2217097 / / NA Imp Connector Medt Tsrh 3dx Small 0175458 - [id number] Implanted:Qt y: 5 on 10/07/2023 by Miguel Warren MD at [facility] Metallic Hardware/Anc hor N/A: Spine Lumbar [employer] 0675159 / / NA Imp Connector Medt Tsrh 3dx Med [id number] - [id number] Implanted:Qt y: 1 on 10/07/2023 by Miguel Warren MD at [facility] Metallic Hardware/Anc hor N/A: Spine Lumbar [employer] 5534580 / / Imp Gurvinder Medt Tsrh Prebent 05.0cm 8430211 - [id number] Implanted:Qt y: 1 on 10/07/2023 by Miguel Warren MD at [facility] Metallic Hardware/Anc hor N/A: Spine Lumbar [employer] 0457881 / / NA Gurvinder Precut 4.5cmx5.5mm - [id number] Implanted:Qt y: 1 on 10/07/2023 by Miguel Warren MD at [facility] Metallic Hardware/Anc hor N/A: Spine Lumbar [employer] [id number] / / NA Explanted Type Area Information Technology Professor Device Identifier Shelf Expiration Date Model / Serial / Lot Imp Scr Set Medt Tsrh 3dx Flush Break [id number] - [id number] Implanted:Qty : 6 on 06/29/2023 by Miguel Warren MD at [facility] Explanted:Qty : 6 on 10/07/2023 by Miguel Warren MD at [facility] Metallic Hardware/An chor N/A: Spine Lumbar [employer] 3483263 / / Imp Connector Medt Tsrh 3dx Small 7901908 - [id number] Implanted:Qty : 6 on 06/29/2023 by Miguel Warren MD at [facility] Explanted:Qty : 6 on 10/07/2023 by Miguel Warren MD at [facility] Metallic Hardware/An chor N/A: Spine Lumbar [employer] 9246057 / / Imp Gurvinder Medt Ts Prebent 06.0cm 8644875 - [id number] Implanted:Qty : 2 on 06/29/2023 by Miguel Warren MD at [facility] Explanted:Qty : 2 on 10/07/2023 by Miguel Warren MD at [facility] Metallic Hardware/An chor N/A: Spine Lumbar [employer] [id number] / / Tsrh 7.5x60mm Screw Implanted:Qty : 1 on 06/29/2023 by Miguel Warren MD at [facility] Explanted:Qty : 1 on 10/07/2023 by iMguel Warren MD at [facility] Metallic Hardware/An chor N/A: Spine Lumbar [employer] [id number] / / Imp Scr Medt Ts 3dx Og Thin 6.5x50mm Ti [id number] - [id number] Implanted:Qty : 2 on 03/25/2023 by Miguel Warren MD at [facility] Explanted:Qty : 2 on 10/07/2023 by Miguel Warren MD at [facility] Metallic Hardware/An chor Left: Spine Lumbar [employer] [id number] / / Imp Scr Medt Tsrh 3dx Og Thin 6.5x45mm Ti [id number] - [id number] Implanted:Qty : 2 on 03/25/2023 by Miguel Warren MD at [facility] Explanted:Qty : 2 on 10/07/2023 by Miguel Warren MD at [facility] Metallic Hardware/An chor Left: Spine Lumbar [employer] [id number] / / Imp Scr Set Medt Tsrh 3dx Flush Break 0032164 - [id number] Implanted:Qty : 4 on 03/25/2023 by Miguel Warren MD at [facility] Explanted:Qty : 4 on 10/07/2023 by Miguel Warren MD at [facility] Metallic Hardware/An chor Left: Spine Lumbar [employer] 3073538 / / Imp Connector Medt Tsrh 3dx Small 7485358 - [id number] Implanted:Qty : 4 on 03/25/2023 by Miguel Warren MD at [facility] Explanted:Qty : 4 on 10/07/2023 by Miguel Warren MD at [facility] Metallic Hardware/An chor Left: Spine Lumbar [employer] 6175260 / / Imp Gurvinder Medt Tsrh Prebent 03.5cm 9848511 - [id number] Implanted:Qty : 2 on 03/25/2023 by Miguel Warren MD at [facility] Explanted:Qty : 2 on 10/07/2023 by Miguel Warren MD at [facility] Metallic Hardware/An chor Left: Spine Lumbar [employer] 2442038 / / Imp Scr Medt Tsrh 3dx Og Thin 7.5x50mm Ti [id number] - [id number] Implanted:Qty : 3 on 06/29/2023 by Miguel Warren MD at [facility] Explanted:Qty : 3 on 10/07/2023 by Miguel Warren MD at [facility] Metallic Hardware/An chor N/A: Spine Lumbar [employer] [id number] / / Imp Scr Medt Tsrh 3dx Og Thin 7.5x45mm Ti [id number] - [id number] Implanted:Qty : 2 on 06/29/2023 by Miguel Warren MD at [facility] Explanted:Qty : 2 on 10/07/2023 by Miguel Warren MD at [facility] Metallic Hardware/An chor N/A: Spine Lumbar [employer] [id number] / / Insurance MEDICARE [facility] [employer] [facility] Address: [address] [address] [place] [address] MEDICARE [facility] [employer] [facility] Address: [address] [address] [place] [address] Advance Directives For more information, please contact: [phone] * Full Code (Latest Code Status on [...] patie nt/ legal decision maker Care Teams Psychologist Social Relationship Specialty Start Date End Date Braden Ramirez [address] [place] [address] PCP - General Family Medicine 06/22/23
--- OUTSIDE RECORDS SUMMARY | 2025-01-17 01:44 | XMS_ITS | Clinical Summary ---
Author Organization [facility] [facility] Address [address] [place] [address] Care Team Providers Care Stereoptic Projection Topographer Name Role Phone Braden Ramirez MD Primary Care Provider Allergies Active Allergy Reactions Criticality Noted Date Comments Pregabalin Edema 06/25/2021 On 150 mg twice daily. Ihfclmp-Rol-Xfy Reductase Inhibitors Myalgia 12/30/2019 Pravastain, atorvastatin. 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) use of anticoagulants 05/27/2010 05/15/2011 Overview (05/27/2010): INR Goal Range: 1.5 - 2.5 Lumbosacral spondylosis without myelopathy 09/21/2008 10/23/2020 Encounters Date Type Department Care Team Description 01/13/2025 Refill [facility] [address] [place] [address] Braden Ramirez MD Refill Request (Losartan, Gabapentin) 01/12/2025 Orders Only [facility] SERVICES Scanner 1 scan: (1-Ord) INCOMING RECORDS-PATHOLOGY, TAREEN DERMATOLOGY, 01/12/2025 01/11/2025 1:00 PM CDT Office Visit [facility] [address] [facility] [address] [place] [address] Denise Waters, Derm Problem 01/11/2025 Travel 01/10/2025 Anticoagulation (warfarin) [facility] [address] [place] [address] Nurse, Kiet Anticoag Anticoagulation (Initial Edu) 01/09/2025 2:30 PM CDT Office Visit [facility] [address] [facility] [address] [place] [address] Jair Helm MD, PhD CV Valve Est (INPERSON:VALVE EST: 30DAY S/P TAVR, LABS ECHO CT MORPH PRIOR, NEEDS EKG, KCCQ12, 5MWALK, LETTER GIVEN, HJK//Pt states he has been having dizzy spells everyday recently) 01/09/2025 Telephone [facility] [address] [place] [address] Braden Ramirez MD Anticoagulation (Target End Date ) 01/09/2025 Telephone [facility] [address] [place] [address] Braden Ramirez MD Anticoagulation (Anticoagulation Orders ) 01/09/2025 Travel 12/30/2024 1:00 PM CDT Ancillary Procedure [facility] [address] [facility] [address] [place] [address] 12/30/2024 11:00 AM CDT Orders Only [facility] [address] [facility] [address] [place] [address] Lab 12/30/2024 10:00 AM CDT Ancillary Procedure [facility] [address] [facility] [address] [place] [address] 12/30/2024 Travel 12/26/2024 Telephone [facility] [address] [place] [address] Braden Ramirez MD Refill Request (losartan (COZAAR) 50 mg tablet) 12/08/2024 Telephone [facility] 1455 [facility] [address] [place] [address] Mayra Solano PA Questions (RE; OV yesterday) 12/07/2024 3:00 PM CDT Orders Only [facility] [address] [facility] [address] [place] [address] Lab 12/07/2024 1:30 PM CDT Office Visit [facility] [address] [facility] [address] [place] [address] Mayra Solano PA Follow Up (POST HOSP 4-6WKS F/U [facility] 11/08. Dx: Severe aortic stenosis [I35.0] PT states feeling ok. No cardiac symptoms today. His incision is sore and he says he think something is leaking in there.) 12/07/2024 Travel 12/05/2024 10:30 AM CDT Office Visit [facility] [address] [place] [address] Braden Ramirez MD Hospital F/U (ANW, 11/30/2024 - 12/01/2024, TVAR) 12/05/2024 Travel 12/03/2024 Telephone [facility] [address] [place] [address] Rosalva Rosenthal, EDEL free (Incoming Zio call that pt had 13.9 seconds of complete heart block HR 50-51 at 0015 on 12/03/2024) 12/03/2024 Telephone [facility] [address] [place] [address] Roslava Rosenthal RN free (Auto-triggered for 13.9 seconds complete heart block HR 50-51) 12/02/2024 Patient Outreach [facility] [address] [place] [address] Vivian Llamas, RN Primary RN Care Management (Lace 38); Hospital F/U 11/30/2024 1:22 PM CDT - 12/01/2024 12:00 PM CDT Hospital Encounter [facility] [address] [place] [address] Jair Helm MD, PhD Severe aortic stenosis (Primary Dx) Discharge Disposition: Home Self Care 11/30/2024 Travel 11/29/2024 Orders Only [facility] [address] [place] [address] Alice Ch PA <No scans attached> 11/29/2024 Telephone [facility] [address] [facility] [address] [place] [phone] Heather Francisco RN Procedure (TAVR 11/30) 11/28/2024 Telephone [facility] 1455 [facility] [address] [place] [address] Mayra Solano PA Medication Management (Repatha) 11/22/2024 10:30 AM CDT Office Visit [facility] [address] [facility] [address] [place] [address] Alice Ch PA CV Valve Est (INPERSON:VALVE EST:PRE-OP TAVR, LABS PRIOR,NEEDS EKG,KCCQ12, 5M WALK,LETTER SENT, HJK//PCP: Braden Ramirez MD/) 11/22/2024 10:00 AM CDT Orders Only [facility] [address] [place] [phone] Lab (/) 11/22/2024 Travel 11/17/2024 Travel 11/10/2024 Telephone [facility] [address] [place] [phone] Patrick Wilson MD Health Maintenance Update (Post Multidisciplinary Valve Conference Discussion /) 11/10/2024 Telephone [facility] [address] [facility] [address] [place] [address] Jair Helm MD, PhD Results (CT OVER READ NOTIFICATION) 11/08/2024 10:23 AM CDT - 11/08/2024 8:30 PM CDT Hospital Encounter [facility] [address] [place] [address] Jair Helm MD, PhD Severe aortic stenosis (Primary Dx); Cardiovascular symptoms Discharge Disposition: Home Self Care 11/08/2024 Travel 10/31/2024 Refill [facility] [address] [place] [address] Braden Ramirez MD Refill Request (Repatha Sureclick ) 10/25/2024 1:00 PM CDT Telemedicine [facility] [address] [facility] [address] [place] [phone] Bhupinder Alcaraz MBMary [facility] 10/25/2024 Telephone [facility] [address] [facility] [address] [place] [phone] Jair Helm MD, PhD Prior Authorization 10/24/2024 1:30 PM CDT Office Visit [facility] [address] [place] [address] [address] [place] [address] Jair Helm MD, PhD Consult (INPERSON:VALVE NEW:, CT'S DONE PRIOR(10/12), NEEDS EKG,KCCQ12, 5M WALK: (6.41 sec, 6.29 sec, 5.65 sec.),LETTER SENT, JOHNK REFERRAL CASE. ) 10/24/2024 Travel 10/24/2024 Orders Only 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 Ascending aorta: 42 x 42 mm and area height ratio of 7.8 cm2/m Descending thoracic aorta: 30 x 29 mm. FOR PATIENT: Results are automatically released to your [employer]) account once available, in compliance with federal regulations. This means that you may see your results before your provider has had a chance to review them. Please allow 2-3 business days for your provider to comment on the results. 12/30/2024 Dank Callaway MD General Therapist Physical Reddy Regan MD, [facility] Alice PICKARD CT Fi nal Result * CT CARDIAC MORPHOLOGY W RAD DUAL READ (12/30/2024 1:18 PM CDT) Anatomical Region Laterality Modality HEART Computed Tomogra phy 12/30/2024 7:03 PM CDT Narrative 12/30/2024 7:03 PM CDT For Patients: As a result of the Century Cures Act, medical imaging exams and procedure [...] conjunction with the services provided by the [facility] ([facility]). INDICATION: Cardiac over-read. FINDINGS: Aorta: This is [...] For Patients: As a result of the Century Cures Act, medical imagingexams and procedure reports [...] in conjunction with the services provided bythe [facility] ([facility]). INDICATION: Cardiac over-read. FINDINGS: Aorta: This is [...] MD @ 12/30/2024 7:03:40 PM (Electronically Signed) us Alice PICKARD CT Fi nal Result * (ABNORMAL) CBC W PLT NO DIFF (12/30/2024 10:36 AM CDT) Only the most recent of5 resultswithin the time period is included. WHITE BLOOD CELL COUNT 3.9 3.8 - 10.8 Thousand/u L [facility] ( RED BLOOD CELL COUNT 4.17(L) 4.20 - 5.80 Million/uL [facility] ( HEMOGLOBIN 12.2(L) 13.2 - 17.1 g/dL [facility] ( HEMATOCRIT 38.1(L) 38.5 - 50.0 % [facility] ( MCV 91.4 80.0 - 100.0 fL [facility] ( MCH 29.3 27.0 - 33.0 pg [facility] ( MCHC 32.0 32.0 - 36.0 g/dL [facility] ( Comment: For adults, a slight decrease in the calculated MCHC value (in the range of 30 to 32 g/dL) is most likely not clinically significant; however, it should be interpreted with caution in correlation with other red cell parameters and the patient's clinical condition. RDW 13.7 11.0 - 15.0 % [facility] ( PLATELET COUNT 155 140 - 400 Thousand/u L [facility] ( MPV 9.6 7.5 - 12.5 fL [facility] ( Blood BLOOD SPECIMEN / Unknown 12/30/2024 10:36 AM CDT 12/30/2024 10:36 AM CDT us Mayra PICKARD HEMATOLOGY Final Res ult Performing Organization Address City/[facility]/ZIP Co de Phone Number [facility] [address] [place] [address], [facility] ( [address] [place] [address] * (ABNORMAL) PRO-BNP (12/30/2024 10:36 AM CDT) Only the most recent of3 resultswithin the time period is included. NT PROBNP 482(H) <450 pg/mL [facility] Blood BLOOD SPECIMEN / Unknown 12/30/2024 10:36 AM CDT 12/30/2024 10:36 AM CDT Mayra PICKARD SEND OUTS Final Res ult Performing Organization Address [facility]/ZIP Co de Phone Number [facility] [address] [place] [address], [facility] [address] [place] [address] * (ABNORMAL) BASIC METABOLIC PANEL (12/30/2024 10:36 AM CDT) Only the most recent of6 resultswithin the time period is included. GLUCOSE 86 65 - 99 mg/dL [facility] [...] CDT Mayra PICKARD CHEMISTRY Final Res ult [facility] [address] [place] [address], [facility] [address] [place] [address] * ECHO TTE LIMITED W CONTRAST (12/30/2024 [...] Tech: VERONICA Referring MD: ALICE CH Site: [facility] Reading Location: Mobile-OP Patient Location: Outpatient. [...] 2 cc ml diluted Definity, lot #[id number], [facility]# [id number] was administered peripherally to enhance visualization of all left ventricular segments. . This study was interpreted by an [facility] accredited facility. Final Procedure Note Armin Arita MD - 12/30/2024 ECHOCARDIOGRAM LARRY PERES : 1940 84 years Study Date: 12/30/2024 9:32:43 AM Gender: M BP: 112/81 mmHg Height: 180.34 cm BSA: 2.26 m Weight: 107.05 kg Tech: VERONICA Referring MD: ALICE CH Site: [facility] Reading Location: Mobile-OP Patient Location: Outpatient. [...] 2 cc ml diluted Definity, lot #[id number], [facility]#[id number] was administered peripherally to enhance visualization of allleft ventricular segments. . This study was interpreted by an [facility] accredited facility. Final us Alice PICAKRD ECHO ORD Fi nal Result * Event Monitor (real-time) (12/29/2024) Rafa Lew Acuna Meghann-Nguyen - 12/29/2024 Extended holter placed on this patient at [facility] on 12.01.24 for 14 days. Report will be found in the Procedures tab approximately 7-10 days after end of monitor period. us Harpreet Raines NP CARDIAC SERVICES ORD Final Result * GLUCOSE METER (12/01/2024 8:01 AM CDT) [facility] GLUCOSE METER 97 65 - 100 mg/dL 12/01/2024 8:16 AM CDT [facility] Blood BLOOD SPECIMEN / Unknown 12/01/2024 8:01 AM CDT 12/01/2024 8:16 AM CDT Jair Helm MD, PhD CHEMISTRY Fin al Result Performing Organization Address [facility] de Phone Number [facility] [address] [phone], * MAGNESIUM (12/01/2024 6:00 AM CDT) Only the most recent of2 resultswithin the time period is included. MAGNESIUM 1.8 1.6 - 2.4 mg/dL 12/01/2024 7:25 AM CDT [facility] Blood BLOOD SPECIMEN / Unknown Venipuncture / Unknown 12/01/2024 6:00 AM CDT 12/01/2024 6:52 AM CDT Jair Helm MD, PhD CHEMISTRY Fin al Result Performing Organization Address [facility] Phone Number [facility] [address] [place] [address], * SCAN-CARDIAC STRIP (12/01/2024 2:51 AM CDT) Scanner OTHER Final Result * (ABNORMAL) ACTIVATED CLOTTING TIME [id number] ACT (11/30/2024 4:55 PM CDT) ACTIVATED CLOTTING TIME, POCT 267(H) 74 - 125 sec 11/30/2024 11:41 PM CDT [facility] Blood BLOOD SPECIMEN / Unknown 11/30/2024 4:55 PM CDT 11/30/2024 11:41 PM CDT us Jair Helm MD, PhD HEMATOLOGY Fin al Result Performing Organization Address [facility]/ZIP Co de Phone Number [facility] [address] [address], * CVL TAVR (11/30/2024 4:40 PM CDT) Anatomical Region Laterality Modality X-Ray Angiograph y 11/30/2024 4:40 PM CDT Narrative Procedure Note Jair Helm MD, PhD - 11/30/2024 5:49 PM CDT DATE OF SERVICE: 11/30/24 PROCEDURE: Transcatheter aortic valve implantation. PREOPERATIVE DIAGNOSIS: Severe aortic stenosis POSTOPERATIVE DIAGNOSIS: s/p TAVR OPERATORS: Jair Helm MD, PhD Bhupinder Alcaraz [facility] Faisal Adan MD DESCRIPTION The risks, benefits [...] deployment. Post-dilatation was performed with a True [id number]. There was no evidence of significant AR. The mean gradient fell to6.0 mmHg. The arterial access sites were closed using the ProGlidesutures. The pacemaker was removed as there was no conduction delay.There were no complications. The patient was transferred to anesthesiarecovery unit in hemodynamically stable condition. Jair Helm MD, PhD Treater Helper [facility] [address] [place] [address] O: [phone] F: [phone] Transcriptions Jair Helm MD, PhD - 12/13/2024 4:36 PM CDT [facility] Cardiac Catheterization Report Name: LARRY PERES Event Date: 11/30/2024 16:40 Excellian ID #: [id number] GEN #: [id number] Patient Class: Outpatient Diagnostic Physician: JAIR HELM [facility] Interventional Physician: JAIR HELM [facility] Referring Physician: Primary Care Physician: BRADEN RAMIREZ [...] with primary physician * Follow up with property disposal officer Consent & [place] Protocol The risks, benefits, and alternatives of the procedure were discussed withthe patient and written informed consent was obtained. [place] protocol was followed. TIME OUT conducted just prior tostarting procedure confirmed patient identity, site/side, procedure,patient position, and availability of correct equipment and implants (ifapplicable). Staff Name Title Jair Helm Treater Helper Loco Malone Fellow Yoana Watts RN Nurse Shelby Everett RN Nurse Khalida Jimenez RTR Monitor Denisha Morenod CVT Enrichment Director Charlie Harding CVT Enrichment Director Jerri Chavez RN Nurse Procedures ? Ultrasound [...] ml Subcut Jair Helm OwaisShakir 16:46 Heparin 64787 units IV Jair Helm Leesa RN 16:48 [...] healthcare professional providing the sedation ends personal qxdlwwkgcnmncv-fm-hhak time with the patient. The medications listed above were verbally ordered by me and read back tome as documented above. Refer to the procedure log report for additional case details. electronically signed on 12/13/2024 4:36:46 PM with status of Final Jair Helm MD [facility]NOTE 2] [address] [place] [address] (p) [phone](f) us Jair Helm MD, PhD CV IMAGING Ga nguyen Result - Final * RBC W/O TYPE & SCREEN (11/30/2024 2:15 PM CDT) QUANTITY 2 11/30/2024 2:1 5 PM CDT [facility] Blood BLOOD SPECIMEN / Unknown 11/30/2024 1:51 PM CDT us Jair Helm MD, PhD BLOOD BANK Ga nguyen Result - Final Performing Organization Address City/[facility]/ZIP Co de Phone Number [facility] [address] [place] [address], [place] [phone] * RED BLOOD CELLS EA UNIT (11/30/2024 2:00 PM CDT) Only the most recent of2 resultswithin the time period is included. Pathologist [facility] CROSSMATCH Compatible Compatible [facility] CV-CENTR[facility] BLOOD BANK PRODUCT BLOOD TYPE O Rh Positive [facility] B[facility] PRODUCT ID NUMBER [id number] [facility] B[facility] PRODUCT STATUS /Relea sed [facility] CV-CENTRAL LAB BLOOD BANK PRODUCT DESCRIPTION RBC -1 LR [facility] BLOOD BANK PRODUCT CODE [id number] [facility]ge[facility] BLOOD BANK us Jair Helm MD, PhD BLOOD BANK Ga nguyen Result - Final [facility] [address] [place] [address], [place] [phone] * EXTRA TUBE LAVENDER (11/30/2024 1:54 PM CDT) Blood BLOOD SPECIMEN / Unknown Non-Lab Venipuncture / Unknown 11/30/2024 1:54 PM CDT 11/30/2024 2:19 PM CDT us Jair Helm MD, PhD LABORATORY Fin al Result [facility]-CENTRAL LABORATORY [address] [place] [address], [place] * EXTRA TUBE GOLD/SST (11/30/2024 1:54 PM CDT) Only the most recent of2 resultswithin the time period is included. Blood BLOOD SPECIMEN / Unknown Non-Lab Venipuncture / Unknown 11/30/2024 1:54 PM CDT 11/30/2024 2:19 PM CDT Jair Helm MD, PhD LABORATORY Fin al Result Performing Organization Address City/[facility] Co de Phone Number [facility] LABORATORY-CENTRAL LABORATORY [address] [place] [address], [place] * TYPE & SCREEN (11/30/2024 1:54 PM CDT) Only the most recent of2 resultswithin the time period is included. ABORH O Rh Positive 11/30/2024 2:50 PM CDT [facility] LAB-CENTRAL LAB BLOOD BANK ANTIBODY SCREEN Negative Negative 11/30/2024 2:50 PM CDT [facility] BLOOD BANK SPECIMEN EXPIRATION DATE/TIME 12/03/24 23:59 11/30/2024 2:50 PM CDT [facility] Blood BLOOD SPECIMEN / Unknown Venipuncture / Unknown 11/30/2024 1:54 PM CDT 11/30/2024 2:08 PM CDT Alice PICKARD BLOOD BANK Fi nal Result [facility]ABCENTRAL LAB BLOOD BANK [address] [place] [address], [place] [phone] * Glucose, Fasting (11/30/2024 1:54 PM CDT) GLUCOSE 95 70 - 99 mg/dL 11/30/2024 2:42 PM CDT [facility] LABORATORYCENTR AL LABORATORY Blood BLOOD SPECIMEN / Unknown Venipuncture / Unknown 11/30/2024 1:54 PM CDT 11/30/2024 2:08 PM CDT Alice PICKARD CHEMISTRY Fi nal Result Performing Organization Address [facility]/ZIP Co de Phone Number [facility] [address] [place] [address], * MOLD BREAKER QUESTION TEST (11/22/2024 11:45 AM CDT) QABT Question Yes 11/22/2024 11:58 AM CDT [facility] Blood BLOOD SPECIMEN / Unknown Non-Lab Venipuncture / Unknown 11/22/2024 11:45 AM CDT 11/22/2024 11:52 AM CDT Jair Helm MD, PhD BLOOD BANK Fin al Result Performing Organization Address [facility] Co de Phone Number [facility] [address] [place] [address], * ALBUMIN (11/22/2024 11:45 AM CDT) ALBUMIN 4.0 4.0 - 4.9 g/dL 11/22/2024 12:40 PM CDT [facility] AL LABORATORY Blood BLOOD SPECIMEN / Unknown Non-Lab Venipuncture / Unknown 11/22/2024 11:45 AM CDT 11/22/2024 11:52 AM CDT Patrick Wilson MD CHEMISTRY Final Result Performing Organization Address City/[facility]/ZIP Co de Phone Number [facility]ORY[facility]TRAL LABORATORY [address] [place] [address], * CVL CORONARY ANGIOGRAM POSS PCI (11/08/2024 3:23 PM CDT) Anatomical Region Laterality Modality X-Ray Angiograph y, X-Ray Angiography 11/08/2024 3:23 PM CDT Narrative Transcriptions Voudris, Jair, MD, PhD - 11/08/2024 6:34 PM CDT [facility] Cardiac Catheterization Report Name: LARRY PERES Event Date: 11/08/2024 15:23 Excellian ID #: [id number] GEN #: [id number] Patient Class: Outpatient Diagnostic Physician: JAIR HELM [facility] Referring Physician: Date: 1940 Gender: Male Age: [...] with primary physician * Follow up with property disposal officer Consent & [place] Protocol The risks, benefits, and alternatives of the procedure were discussed withthe patient and written informed consent was obtained. [place] protocol was followed. TIME OUT conducted just prior tostarting procedure confirmed patient identity, site/side, procedure,patient position, and availability of correct equipment and implants (ifapplicable). Staff Name Title Jair Helm Diagnostic Lubrication Supervisor Sonja Saeed RN Nurse Carmen Rankin CVT Scrub Rosario Bateman CVT Monitor Cassius Morrow CVT Enrichment Director Sixto Leggett CVT Scrub Procedures ? Ultrasound Guided Vascular [...] healthcare professional providing the sedation ends personal flkykjanwyllrl-zs-nwpj time with the patient. The medications listed above were verbally ordered by me and read back tome as documented above. Refer to the procedure log report for additional case details. electronically signed on 11/08/2024 6:34:51 PM with status of Final Jair Helm MD [facility] [address] [place] [address] (p) [phone](f) us Provider Referring CV IMAGING Edited Result - Final from Last 3 Months Insurance 370[address] [place] [id number] MEDICARE PART A HB ONLY [facility] Advance Directives Documents on File Type Date Recorded Patient Director Of Reimbursement Expl anation Healthcare Directive 10/02/2016 5:55 PM [...] 9:12 PM 01/11/2020 2:29 PM Care Teams Stereoptic Projection Topographer Relationship Specialty Start Date End Date Braden Ramirez MD [address] [facility] [place] [address] PCP - General Family Practice 09/19/20
== END 2025-01-15 19:53 | disposition home or self-care (01) ==
PROVIDERS: PCP Family Medicine; Visit Provider Family Medicine
DX: I46.9 Cardiac arrest, cause unspecified (principal)
CPT/HCPCS: A0425; A0433

== ENCOUNTER 2025-01-15 20:54 | Emergency (ER) | payer OTHER, SELFPAY ==
--- OUTSIDE RECORDS SUMMARY | 2025-01-15 20:58 | XMS_ITS | Clinical Summary ---
Author Organization [facility] Address [address] [place] [address] Care Team Providers Care Tire Repairer Name Role Phone Braden Ramirez Primary Care Provider [phone] Allergies No known active allergies Medications omeprazole (PRILOSEC) [address] capsule Take 20 mg by mouth daily Active losartan (COZAAR) 50 MG tablet Take 50 mg by mouth every evening Active gabapentin (NEURONTIN) 300 MG capsule Take 300 mg by mouth 3 times daily Active Vitamin D (Cholecalciferol ) 50 MCG (1999) CAPS Take 2,000 Units by mouth every evening Active ezetimibe (ZETIA) 10 MG tablet Take 10 mg by mouth daily Active hydrochlorothiaz leno (HYDRODIURIL) 25 MG tablet Take 25 mg by mouth daily Active metoprolol succinate ER (TOPROL XL) 25 MG 24 hr tablet Take 25 mg by mouth daily Active evolocumab (REPATHA) 140 MG/ML prefilled autoinjector Inject 140 mg Subcutaneous every 14 days and Active cyanocobalamin (VITAMIN B-12) 1000 MCG tablet Take 1,000 mcg by mouth daily Active sildenafil (VIAGRA) 100 MG tablet Take 50 mg by mouth daily as needed (ED) Active senna-docusate (SENOKOT-S/PERIC OLACE) 8.6-50 MG tabletIndication s:S/P lumbar spinal fusion Take 1 tablet by mouth 2 times daily 60 tablet 4 Active polyethylene glycol (MIRALAX) 17 GM/Dose powderIndication s:S/P lumbar spinal fusion Take 17 g by mouth daily 510 g 2 4 Active methocarbamol (ROBAXIN) 500 MG tabletIndication s:S/P lumbar spinal fusion Take 1 tablet (500 mg) by mouth 4 times daily 60 tablet 4 Active hydrOXYzine HCl (ATARAX) 10 MG tabletIndication s:S/P lumbar spinal fusion Take 1 tablet (10 mg) by mouth every 6 hours as needed for other (adjuvant pain) 60 tablet 4 Active acetaminophen (TYLENOL) 325 MG tabletIndication s:S/P lumbar spinal fusion Take 2 tablets (650 mg) by mouth every 4 hours as needed for other (For optimal non-opioid multimodal pain management to improve pain control.) 100 tablet 4 Active oxyCODONE (ROXICODONE) 5 MG tabletIndication s:S/P lumbar spinal fusion Take 1 tablet (5 mg) by mouth every 4 hours as needed for moderate pain 32 tablet 4 Active Active Problems Problem Noted Date Diagnosed Date Lumbar spinal stenosis 03/25/2023 Social History Tobacco Use Types Packs/Day Years Used Date Smoking Tobacco: Former Cigarettes 1 25 0 08/13/1986 - 08/13/2011 Smokeless Tobacco: Never Alcohol Use Standard Drinks/Week Comments Yes 0 (1 standard drink = 0.6 oz pur e alcohol) 2 BEERS, 5-6 COCKTAILS/ WEEK Adolescent Education Answer Date Record ed Getting School Help Needed Not on file 04/10 Sex and Gender Information Value Date Recorded Sex Assigned at Not on file Legal Sex Male 12:45 PM CDT Gender Identity Not on file Sexual Orientation Not on file Last Filed Vital Signs Vital Sign Reading Time Taken Comments Blood Pressure 146/73 10/09/2023 7:55 AM CDT Pulse 68 10/09/2023 7:55 AM CDT Temperature 36.7 C (98 F) 10/09/2023 7:55 AM CDT Respiratory Rate 16 10/09/2023 7:55 AM CDT Oxygen Saturation 96% 10/09/2023 7:55 AM CDT Inhaled Oxygen Concentration - - Weight 100.7 kg (222 lb) 10/07/2023 8:13 AM CDT Height 177.8 cm (5' 10) 10/07/2023 8:13 AM CDT Body Mass Index 31.85 10/07/2023 8:13 AM CDT Plan of Treatment Health Maintenance Due Date Last Done Comments ADVANCE CARE PLANNING 1941 ANNUAL REVIEW OF HM ORDERS 1941 FALL RISK ASSESSMENT 2006 RSV VACCINE (1 - 1-dose 75+ series) 2016 MEDICARE ANNUAL WELLNESS VISIT 10/29/2023 10/28/2022, 05/31/2021 COVID-19 VACCINE ( season) 2024 05/08/2023, 05/26/2022, 01/30/2022, Additional history exists DTAP/TDAP/TD VACCINE (4 - Td or Tdap) 06/23/2024 06/23/2014, 06/08/2006, 06/08/2006 PHQ-2 (once per calendar year) 2024 INFLUENZA VACCINE (Season Ended) 2025 04/20/2023, 05/19/2022, 05/02/2021, Additional history exists ZOSTER VACCINE Completed 02/09/2019, 03/2019, 06/10/2011 PNEUMOCOCCAL VACCINE 50+ YEARS Completed 10/28/2022, 03/22/2015, 05/15/2011 HPV VACCINE Aged Out No longer eligi ble based on patient's age to complete this topic MENINGITIS VACCINE Aged Out No longer eligible based on patient's age to complete this topic Medical Devices Implanted Type Area Chef Instructor Device Identifier Shelf Expiration Date Model / Serial / Lot Graft Bone Infuse Bmp Xsm [id number] - [id number] Implanted:Qt y: 1 on 10/07/2023 by Miguel Warren MD at [facility] Bone/Tissue Synthetic Right: Spine Lumbar [employer]DANEK 09/16/2024 [id number] / / [id number] Graft Bone Magnetos 1-2 Mm 10 Cc Allograft Gran 703-038-Us - [id number] Implanted:Qt y: 1 on 10/07/2023 by Miguel Warren MD at [facility] Bone/Tissue Synthetic N/A: Spine Lumbar [employer] [id number] 09/18/2027 [id number] / / [id number] Imp Spi Interbody Medt Catal[address]ft Pl Long 11mm [id number] - [id number] Implanted:Qt y: 1 on 03/25/2023 by Miguel Warren MD at [facility] Metallic Hardware/Anc hor Left: Spine Lumbar [employer] [id number] 04/25/2030 [id number] / / [id number] Imp Spi Interbody Medt Catalyft Pl Long 11mm [id number] - [id number] Implanted:Qt y: 1 on 06/29/2023 by Miguel Warren MD at [facility] Metallic Hardware/Anc hor N/A: Spine Lumbar [employer] 03/06/2031 [id number] / / [id number] Imp Spi Interbody Medt Catalyft Pl Long 11mm [id number] - [id number] Implanted:Qt y: 1 on 10/07/2023 by Miguel Warren MD at [facility] Metallic Hardware/Anc hor N/A: Spine Lumbar [employer] 10/29/2030 [id number] / / [id number] Imp Scr Medt Tsrh 3dx Og Thin 8.5x45mm Ti [id number] - [id number] Implanted:Qt y: 1 on 10/07/2023 by Miguel Warren MD at [facility] Metallic Hardware/Anc hor N/A: Spine Lumbar [employer] [id number] / / NA Imp Scr Medt Tsrh 3dx Og Thin 8.5x50mm Ti [id number] - [id number] Implanted:Qt y: 1 on 10/07/2023 by Miguel Warren MD at [facility] Metallic Hardware/Anc hor N/A: Spine Lumbar [employer] [id number] / / NA Imp Scr Medt Tsrh 3dx Og Thin 6.5x50mm Ti [id number] - [id number] Implanted:Qt y: 1 on 10/07/2023 by Miguel Warren MD at [facility] Metallic Hardware/Anc hor N/A: Spine Lumbar [employer] [id number] / / NA Imp Scr Medt Tsrh 3dx Og Thin 7.5x45mm Ti [id number] - [id number] Implanted:Qt y: 1 on 10/07/2023 by Miguel Warren MD at [facility] Metallic Hardware/Anc hor N/A: Spine Lumbar [employer] [id number] / / NA Tsrh 8.5x55 Screw Implanted:Qt y: 2 on 10/07/2023 by Miguel Warren MD at [facility] Metallic Hardware/Anc hor N/A: Spine Lumbar [employer] [id number] / / NA Imp Scr Set Medt Tsrh 3dx Flush Break [id number] - [id number] Implanted:Qt y: 6 on 10/07/2023 by Miguel Warren MD at [facility] Metallic Hardware/Anc hor N/A: Spine Lumbar [employer] [id number] / / NA Imp Connector Medt Tsrh 3dx Small [id number] - [id number] Implanted:Qt y: 5 on 10/07/2023 by Miguel Warren MD at [facility] Metallic Hardware/Anc hor N/A: Spine Lumbar [employer] [id number] / / NA Imp Connector Medt Tsrh 3dx Med [id number] - [id number] Implanted:Qt y: 1 on 10/07/2023 by Miguel Warren MD at [facility] Metallic Hardware/Anc hor N/A: Spine Lumbar [employer] [id number] / / Imp Gurvinder Medt Tsrh Prebent 05.0cm [id number] - [id number] Implanted:Qt y: 1 on 10/07/2023 by Miguel Warren MD at [facility] Metallic Hardware/Anc hor N/A: Spine Lumbar [employer] [id number] / / NA Gurvinder Precut 4.5cmx5.5mm - [id number] Implanted:Qt y: 1 on 10/07/2023 by Miguel Warren MD at [facility] Metallic Hardware/Anc hor N/A: Spine Lumbar [employer] [id number] / / NA Explanted Type Area Chef Instructor Device Identifier Shelf Expiration Date Model / Serial / Lot Imp Scr Set Medt Tsrh 3dx Flush Break [id number] - [id number] Implanted:Qty : 6 on 06/29/2023 by Miguel Warren MD at [facility] Explanted:Qty : 6 on 10/07/2023 by Miguel Warren MD at [facility] Metallic Hardware/An chor N/A: Spine Lumbar [employer] [id number] / / Imp Connector Medt Tsrh 3dx Small [id number] - [id number] Implanted:Qty : 6 on 06/29/2023 by Miguel Warren MD at [facility] Explanted:Qty : 6 on 10/07/2023 by Miguel Warren MD at [facility] Metallic Hardware/An chor N/A: Spine Lumbar [employer] [id number] / / Imp Gurvinder Medt Ts Prebent 06.0cm [id number] - [id number] Implanted:Qty : 2 on 06/29/2023 by Miguel Warren MD at [facility] Explanted:Qty : 2 on 10/07/2023 by Miguel Warren MD at [facility] Metallic Hardware/An chor N/A: Spine Lumbar [employer] [id number] / / Tsrh 7.5x60mm Screw Implanted:Qty : 1 on 06/29/2023 by Miguel Warren MD at [facility] Explanted:Qty : 1 on 10/07/2023 by Miguel Warren MD at [facility] Metallic Hardware/An chor N/A: Spine Lumbar [employer] [id number] / / Imp Scr Medt Ts 3dx Og Thin 6.5x50mm Ti [id number] - [id number] Implanted:Qty : 2 on 03/25/2023 by Miguel Warren MD at [facility] Explanted:Qty : 2 on 10/07/2023 by Miguel Warren MD at [facility] Metallic Hardware/An chor Left: Spine Lumbar [employer] [id number] / / Imp Scr Medt Tsrh 3dx Og Thin 6.5x45mm Ti [id number] - [id number] Implanted:Qty : 2 on 03/25/2023 by Miguel Warren MD at [facility] Explanted:Qty : 2 on 10/07/2023 by Miguel Warren MD at [facility] Metallic Hardware/An chor Left: Spine Lumbar [employer] [id number] / / Imp Scr Set Medt Tsrh 3dx Flush Break [id number] - [id number] Implanted:Qty : 4 on 03/25/2023 by Miguel Warren MD at [facility] Explanted:Qty : 4 on 10/07/2023 by Miguel aWrren MD at [facility] Metallic Hardware/An chor Left: Spine Lumbar [employer] [id number] / / Imp Connector Medt Tsrh 3dx Small [id number] - [id number] Implanted:Qty : 4 on 03/25/2023 by Miguel Warren MD at [facility] Explanted:Qty : 4 on 10/07/2023 by Miguel Warren MD at [facility] Metallic Hardware/An chor Left: Spine Lumbar [employer] [id number] / / Imp Gurvinder Medt Tsrh Prebent 03.5cm [id number] - [id number] Implanted:Qty : 2 on 03/25/2023 by Miguel Warren MD at [facility] Explanted:Qty : 2 on 10/07/2023 by Miguel Warren MD at [facility] Metallic Hardware/An chor Left: Spine Lumbar [employer] [id number] / / Imp Scr Medt Tsrh 3dx Og Thin 7.5x50mm Ti [id number] - [id number] Implanted:Qty : 3 on 06/29/2023 by Miguel Warren MD at [facility] Explanted:Qty : 3 on 10/07/2023 by Miguel Warren MD at [facility] Metallic Hardware/An chor N/A: Spine Lumbar [employer] [id number] / / Imp Scr Medt Tsrh 3dx Og Thin 7.5x45mm Ti [id number] - [id number] Implanted:Qty : 2 on 06/29/2023 by Miguel Warren MD at [facility] Explanted:Qty : 2 on 10/07/2023 by Miguel Warren MD at [facility] Metallic Hardware/An chor N/A: Spine Lumbar [employer] [id number] / / Insurance MEDICARE [facility] [employer] [facility] Address: [address] [address] [place] [address] MEDICARE [facility] [employer] [facility] Address: [address] [address] [place] [address] Advance Directives For more information, please contact: [phone] * Full Code (Latest Code Status on File) Date Activated Date Inactivated Comments 10/07/2023 3:38 PM 10/09/2023 3:08 PM All basic an d advanced life-sustaining interventions are performed as appropriate Question Answer Comments Code status determined by: Discussion with patie nt/ legal decision maker * Full Code Date Activated Date Inactivated Comments 06/29/2023 2:45 PM 07/01/2023 2:19 PM All basic and advanced life-sustaining interventions are performed as appropriate Question Answer Comments Code status determined by: Discussion with patie nt/ legal decision maker * Full Code Date Activated Date Inactivated Comments 03/25/2023 1:36 PM 03/27/2023 3:37 PM All basic and advanced life-sustaining interventions are performed as appropriate Question Answer Comments Code status determined by: Discussion with patie nt/ legal decision maker Care Teams Tire Repairer Relationship Specialty Start Date End Date Braden Ramirez [address] [place] [address] PCP - General Family Medicine 06/22/23
--- OUTSIDE RECORDS SUMMARY | 2025-01-15 20:58 | XMS_ITS | Clinical Summary ---
Author Organization [facility] Address [address] , [address] [place] [address] Phone Care Team Providers Care Medical Observer Name Role Phone Clyde Frank MD Conditions or Problems Problem Name Problem Code Onset Date Status Entry Date Provider Comment Standard Description Annotate Neuropathic pain 665957568 (SNOMED CT) Active 12/19 Clyde Frank MD Neuropathic pain Peripheral polyneuropathy 034340332 (SNOMED CT) Active 12/19 Clyde Frank MD Peripheral nerve disease Medications Medication Instructions Start Date Stop Date Generic Name NDC Provider GABAPENTIN 300 MG CAPS Take 2 capsule by mouth three times a day gabapentin [id number] Clyde Frank MD GABAPENTIN 600 MG TABS Take 1 tablet by mouth three times a day PLEASE CALL TO SCHEDULE AN APPOINTMENT: [phone] gabapentin [id number] Clyde Frank MD GABAPENTIN 300 MG CAPS Take 2 capsule by mouth three times a day gabapentin [id number] Clyde Frank MD VITAMIN B-12 1000 MCG TABS Take 1 tablet by mouth once a day cyanocobalamin (vitamin b-12) [id number] Mary Iniguez MANAGER [employer], [employer] GABAPENTIN 300 MG CAPS Take 2 capsule by mouth three times a day gabapentin [phone] Akbar Nava LPN GABAPENTIN 300 MG CAPS Take 2 capsule by mouth three times a day TAKE ONE CAPSULE BY MOUTH THREE TIMES DAILY gabapentin [id number] Clyde Frank MD Medications Administered No information available. Allergies, Adverse Reactions, Alerts Allergy Name Reaction Description Start Date Severity Statu s Provider STATINS Critical Active Clyde Frank MD PREGABALIN Critical Active Clyde Jesus i, MD Results Date Name Value Unit Range Flag Description Office Visit: OfficeVisit Re ason for visit: blurred vision, bilateral, Perip. SMOK STATUS former smoker Tob acco smoking status MEDS REVIEW Done Documenta tion of current medications (procedure) Replaced Document: (P) HOMOC YSTEINE, METHYLMALONIC ACID METHYL MALON * nmol/L methylma lonic acid (MMA), serum HOMOCYSTEINE 19.0 umol/L <11.4 H homocyst eine, plasma, quantitative Internal Other: Verbal Autho rization/Emergency Contact - OBS VERBAL_EMER DONE Verbal au thorization and emergency contact Internal Other: Authorizatio n - OBS [email or web address] Yes Authoriza tion: Release of Information - Authorize [facility] - Payment and Healthcare Operations ROIAUTHOTHER Yes Authoriz ation: Release of Information - Authorize Others/Insurance - Payment and Healthcare Operations HIECONSENT Yes Consent To Release information to the Health Information Exchange (HIE) [email or web address] Yes Authorizat ion: Authorization for [facility] to leave messages, voicemail, send text messages, send emails AUTHRELHCARE Yes Authoriz ation: Release/Retrieval of Information to/from Healthcare Facilities, Pharmacy Benefit Payers and Providers AUTHPRIVPRAC Yes Authoriz ation: Notice of privacy practices AUTHBENEFIT Yes Authoriza tion: Assignment of Benefits and Payment Agreement Plan of Care Type Date Detail Pending order Follow up MOODY in clinic or telemedicine Pending order Follow up MOODY in clinic or telemedicine Pending order Homocysteine Pending order Methylmalonic Ac id Serum (MMA) Pending order Patient Instruct ions Procedures Code Procedure Name Date Entry Date [id number] Documentation of current medicatio ns ORDERS Homocysteine ORDERS Methylmalonic Acid Serum (MMA) ORDERS Patient Instructions Vital Signs No information available. Immunizations No information available. Advance Directives No information available.
--- OUTSIDE RECORDS SUMMARY | 2025-01-15 20:58 | XMS_ITS | Clinical Summary ---
Author Organization [facility] Address [address] [place] [address] Care Team Providers Care Business Management Manager Name Role Phone Braden Ramirez MD Primary Care Provider Allergies Active Allergy Reactions Criticality Noted Date Comments Pregabalin Edema 06/25/2021 On 150 mg twice daily. Rtkxksb-Kkd-Qhp Reductase Inhibitors Myalgia 12/30/2019 Pravastain, atorvastatin. Medications Cholecalciferol, Vitamin D3, (VITAMIN D-3) 2,000 unit tablet Take 1 tablet by mouth once daily. 0 018 Active aspirin enteric coated (ECOTRIN) 81 mg enteric coated tablet Take 1 tablet by mouth once daily. 019 Active sildenafil citrate (VIAGRA) 100 mg tabletIndications :Erectile dysfunction of organic origin Take one tablet by mouth 1 hour before intercourse do not use within 24 hours of nitroglycerin 10 Tablet 3 025 Active omeprazole 20 mg Delayed-Release capsuleIndication s:Gastroesophagea l reflux disease, unspecified whether esophagitis present TAKE 1 CAPSULE ONCE DAILY BEFORE A MEAL 90 Capsule 3 025 Active metoprolol succinate 25 mg Sustained-Release tabletIndications :HTN (hypertension) TAKE 1 TABLET DAILY 90 Tablet 3 025 Active ezetimibe 10 mg tabletIndications :Hyperlipidemia, unspecified hyperlipidemia type TAKE 1 TABLET DAILY 90 Tablet 3 025 Active evolocumab (Repatha SureClick) 140 mg/mL subcutaneous pen injectorIndicatio ns:Hyperlipidemia , unspecified hyperlipidemia type Inject 1 mL (140 mg) subcutaneous every 2 weeks. 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 Vitamin B supplement (unsure which B vitamin) Active triamcinolone 0.1 % cream Apply topically to affected area(s) 2 times daily if needed. Active clobetasol 0.05 % cream Apply topically to affected area(s) 2 times daily if needed. Active furosemide 20 mg tabletIndications :Severe aortic stenosis,Leg edema,Dyspnea, unspecified type,S/P TAVR (transcatheter aortic valve replacement) Take 1 Tablet (20 mg) by mouth once daily in the morning. Take for 14 days total. 14 Tablet Active Additional Information Patient not taking.Reported on 01/09/2025 losartan 50 mg tabletIndications :Essential hypertension Take 1 Tablet (50 mg) by mouth once daily. 90 Tablet 2 025 Active warfarin 2.5 mg tabletIndications :History of transcatheter aortic valve replacement (TAVR),Hypoattent uated leaflet thickening (HALT),Anticoagul ation monitoring, INR range 2-3 Take by mouth 5 mg (2.5 mg x 2) every day in the evening OR as directed 185 Tablet 025 Active ketoconazole 2% shampoo 2 % shampooIndication s:Seborrheic dermatitis Lather on damp scalp, leave on for 5 min, then rinse with water. Safe for daily use. Recommend using 3 times weekly. 120 mL 11 025 Active gabapentin 600 mg tabletIndications :Peripheral sensory neuropathy TAKE 1 TABLET THREE TIMES A DAY 270 Tablet 2 025 Active gabapentin (NEURONTIN) 600 mg tabletIndications :Peripheral sensory neuropathy Take 1 Tablet (600 mg) by mouth three times daily. 270 Tablet 024 2024 Discontinued losartan (COZAAR) 50 mg tabletIndications :Essential hypertension Take 1 Tablet (50 mg) by mouth once daily. 90 Tablet 025 2024 Discontinued(* Availability/F ormulary change/Cost of medication) Active Problems Problem Noted Date Diagnosed Date Hypoattentuated leaflet thickening (HALT) 2024 Anticoagulation monitoring, INR range 2-3 2024 TAVR 11/30/24 12/05/2024 Chronic obstructive pulmonar y disease, unspecified COPD type 11/11/2024 Type 2 diabetes mellitus wit hout complication, without long-term current use of insulin 11/11/2024 Severe aortic stenosis 11/08/2024 ASCVD (arteriosclerotic cardiovascular disease) 11/08/2024 Frequent PVCs 11/08/2024 SOB (shortness of breath) 11/08/2024 Depression, recurrent 06/25/2023 Colon polyp 09/24/2022 Overview (09/24/2022): Colonoscopy 09/2022 TA, no follow up needed Unstable gait 05/31/2021 Prediabetes 05/31/2021 BPH without urinary obstruction 05/31/2021 Stage 3a chronic kidney disease 10/23/2020 NSTEMI 01/09/2020 OLESYA x 2 to RCA. 01/09/2020 ERIC 12/06/2007 AHI-77 07/28/2013 History of CVA (cerebrovascular accident) 2013 Primary hypertension 04/23/2012 Mixed hyperlipidemia 05/07/2011 Unspecified hereditary and idiopathic peripheral neuropathy 08/26/2010 Lumbosacral Radiculitis at L5 on the right 06/29 Degeneration of lumbar or lumbosacral interverte bral disc 06/29/2008 Spinal stenosis, lumbar lizzette on, without neurogenic claudication 06/29/2008 MGUS (monoclonal gammopathy of unknown significa nce) 2010 Overview (10/23/2020): followup spep q 6 months as per [place] 2010. 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 05/27/2010 05/15/2011 Overview (05/27/2010): INR Goal Range: 1.5 - 2.5 Lumbosacral spondylosis without myelopathy 09/21/2008 10/23/2020 Encounters Date Type Department Care Team Description 01/13/2025 Refill [facility] [address] [place] [address] Braden Ramirez MD Refill Request (Losartan, Gabapentin) 01/12/2025 Orders Only [facility] Scanner 1 scan: (1-Ord) INCOMING RECORDS-PATHOLOGY, TAREEN DERMATOLOGY, 01/12/2025 01/11/2025 1:00 PM CDT Office Visit [facility] [address] [facility] [address] [place] [address] Denise Waters, Derm Problem 01/11/2025 Travel 01/10/2025 Anticoagulation (warfarin) [facility] [address] [place] [address] Nurse, Kiet Anticoag Anticoagulation (Initial Edu) 01/09/2025 2:30 PM CDT Office Visit [facility] [address] [facility] [address] [place] [address] Jair Helm MD, PhD CV Valve Est (INPERSON:VALVE EST: 30DAY S/P TAVR, LABS ECHO CT MORPH PRIOR, NEEDS EKG, KCCQ12, 5MWALK, LETTER GIVEN, HJK//Pt states he has been having dizzy spells everyday recently) 01/09/2025 Telephone [facility] [address] [place] [address] Braden Ramirez MD Anticoagulation (Target End Date ) 01/09/2025 Telephone [facility] [address] [place] [address] Braden Ramirez MD Anticoagulation (Anticoagulation Orders ) 01/09/2025 Travel 12/30/2024 1:00 PM CDT Ancillary Procedure [facility] [address] [facility] [address] [place] [address] 12/30/2024 11:00 AM CDT Orders Only [facility] [address] [facility] [address] [place] [address] Lab 12/30/2024 10:00 AM CDT Ancillary Procedure [facility] [address] [facility] [address] [place] [address] 12/30/2024 Travel 12/26/2024 Telephone [facility] [address] [place] [address] Braden Ramirez MD Refill Request (losartan (COZAAR) 50 mg tablet) 12/08/2024 Telephone [facility] [address] [facility] [address] [place] [address] Mayra Solano PA Questions (RE; OV yesterday) 12/07/2024 3:00 PM CDT Orders Only [facility] [address] [facility] [address] [place] [address] Lab 12/07/2024 1:30 PM CDT Office Visit [facility] [address] [facility] [address] [place] [address] Mayra Solano PA Follow Up (POST HOSP 4-6WKS F/U [facility] 11/08. Dx: Severe aortic stenosis [I35.0] PT states feeling ok. No cardiac symptoms today. His incision is sore and he says he think something is leaking in there.) 12/07/2024 Travel 12/05/2024 10:30 AM CDT Office Visit [facility] [address] [place] [address] Braden Ramirez MD Hospital F/U (ANW, 11/30/2024 - 12/01/2024, TVAR) 12/05/2024 Travel 12/03/2024 [place] [facility] [address] [place] [address] Rosalva Rosenthal, EDEL free (Incoming Zio call that pt had 13.9 seconds of complete heart block HR 50-51 at 0015 on 12/03/2024) 12/03/2024 [place] [facility] [address] [place] [address] Rosalva Rosenthal RN free (Auto-triggered for 13.9 seconds complete heart block HR 50-51) 12/02/2024 Patient Outreach [facility] [address] [place] [address] Vivian Llamas, RN Primary RN Care Management (Lace 38); Hospital F/U 11/30/2024 1:22 PM CDT - 12/01/2024 12:00 PM CDT Hospital Encounter [facility] [address] [place] [address] Jair Helm MD, PhD Severe aortic stenosis (Primary Dx) Discharge Disposition: Home Self Care 11/30/2024 Travel 11/29/2024 Orders Only [facility] [address] [place] [address] Alice Ch PA <No scans attached> 11/29/2024 [place]phone [facility] [address] [facility] [address] [place] [phone] Heather Francisco RN Procedure (TAVR 11/30) 11/28/2024 Telephone [facility] [address] [facility] [address] [place] [address] Mayra Solano PA Medication Management (Repatha) 11/22/2024 10:30 AM CDT [place] [facility] [address] [facility] [address] [place] [address] Alice Ch PA CV Valve Est (INPERSON:VALVE EST:PRE-OP TAVR, LABS PRIOR,NEEDS EKG,KCCQ12, 5M WALK,LETTER SENT, HJK//PCP: Brdaen Ramirez MD/) 11/22/2024 10:00 AM CDT Orders Only [facility] [address] [place] [place] [phone] Lab (/) 11/22/2024 Travel 11/17/2024 Travel 11/10/2024 Telephone [facility] [address] [place] [address] [place] [phone] Patrick Wilson MD Health Maintenance Update (Post Multidisciplinary Valve Conference Discussion /) 11/10/2024 Telephone [facility] [address] [facility] [address] [place] [address] Jair Helm MD, PhD Results (CT OVER READ NOTIFICATION) 11/08/2024 10:23 AM CDT - 11/08/2024 8:30 PM CDT Hospital Encounter [facility] [address] [place] [address] Jair Helm MD, PhD Severe aortic stenosis (Primary Dx); Cardiovascular symptoms Discharge Disposition: Home Self Care 11/08/2024 Travel 10/31/2024 Refill [facility] [address] [place] [address] Braden Ramirez MD Refill Request (Repatha Sureclick ) 10/25/2024 1:00 PM CDT Telemedicine [facility] [address] [facility] [address] [place] [phone] [facility] 10/25/2024 Telephone [facility] [address] [facility] [address] [place] [phone] Jair Helm MD, PhD Prior Authorization 10/24/2024 1:30 PM CDT Office Visit [facility] [address] [place] [address] [address] [place] [address] Jair Helm MD, PhD Consult (INPERSON:VALVE NEW:, CT'S DONE PRIOR(10/12), NEEDS EKG,KCCQ12, 5M WALK: (6.41 sec, 6.29 sec, 5.65 sec.),LETTER SENT, JOHNK REFERRAL CASE. ) 10/24/2024 Travel 10/24/2024 Orders Only [facility] [place] [address] [facility] [address] [place] [address] Jair Helm MD, PhD <No scans attached> from Last 3 Months Immunizations Immunization Administration Dates Next Due AMB Influenza, IIV4 PF (=>6 mos Flulaval,Fluzone Fluarix)(Flu Clinic Only) 04/19/2019 Amb Influenza, Inactivated A IIV4 (Age 65+ Years) Preserv Free 04/26/2020 COVID-19 vaccine (Moderna 100mcg/0.5mL) PF, MDV 01/30/2022,06/05/2021,10/01/2020,09/03 Influenza, High-dose Inactivated 05/26/2016,09/2014,05/18/2014 Influenza, High-dose Quadriv alent Inactivated 04/20/2023,05/19/2022 Influenza, IIV3 (Age 6-35 mos) 05/15/2011 Influenza, IIV3 (Age >=3 years) 08/03/19 14,04/23/2012,05/15/2011,06/09 Influenza, IIV4 (=>6mos) MDV 04/21/2024 Influenza, Inactivated AIIV4 (Age 65+ Years) Preserv Free 05/02/2021 Influenza, Inactivated IIV3 (Age 65+ Years) Preserv Free 04/30/2018,05/04/2017 Pneumococcal Conj 20-valent (Prevnar 20) 10/28/2022 Pneumococcal Poly,23-Valent (Pneumovax) 05/15/2011 Pneumococcal conj 13-Valent (Prevnar 13) 03/22/2015 RSV, Recombinant ADJ Reconst ituted (Arexvy 120MCG/0.5mL) 04/20/2023 Td (Age >=7 Years) 06/08/2006 Tdap 06/23/2014,06/08/2006 Zoster (Shingrix-RZV, recombinant) 02/09/2019, Zoster (Zostavax-ZVL, live) 06/10/2011 Family History Medical History Relation Name Comments Coronary artery disease Brother Other Brother w/ covid a t age 76 Heart Disease Father Stroke Mother Anesthesia Problem No Family History Cancer-prostate No Family History Relation Name Status Comments Brother Father Mother Social History Tobacco Use Types Packs/Day Years Used Date Smoking Tobacco: Former Cigarettes 1 49.5 0 02/01/1962 - 08/13/2011 Smokeless Tobacco: Never Tobacco Cessation:Counseling Given: No Comments:quit 08/13/2011 Alcohol Use Standard Drinks/Week Comments Yes 7 (1 standard drink = 0.6 oz pur e alcohol) PHQ-2 Answer Date Recorded PHQ-2 TOTAL SCORE 1 10/28/2022 Social Connections Answer Date Recorded Do you often feel lonely or isolated from those around you? 0 11/30/2024 Financial Resource Strain Answer Date R ecorded Difficulty of Paying Living Expenses 3 11/30/2024 Difficulty of Paying Living Expenses Not on file 11/30/2024 Food Insecurity Answer Date Recorded Do you worry your food will run out before you are able to buy more? 1 11/30/2024 Transportation Needs Answer Date Record ed Does lack of transportation keep you from medica l appointments? 1 11/30/2024 Does lack of transportation keep you from work, meetings or getting things that you need? 1 11/30/2024 Housing Stability Answer Date Recorded What is your housing situation today? 1 11/30/2024 Interpersonal Safety Answer Date Record ed Are you being hit, kicked, p ushed or yelled at (see row info)? No 11/30/2024 Interpersonal Safety Abuse 12 - 18 Not on file 11/30/2024 Interpersonal Safety Ambulatory Vulnerability No t on file 11/30/2024 Utilities Answer Date Recorded Do you have trouble paying f or utilities (for example, heat, electricity, water, phone)? 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 Not on file Not on fi le Obstetrics History Last Filed Vital Signs Vital Sign Reading Time Taken Comments Blood Pressure 140/86 01/09/2025 2:21 PM CDT Pulse 87 01/09/2025 2:21 PM CDT Temperature 36.5 C (97.7 F) 12/01/2024 8:00 AM CDT Respiratory Rate 18 12/01/2024 8:00 AM CDT Oxygen Saturation 94% 01/09/2025 2:21 PM CDT Inhaled Oxygen Concentration - - Weight 103.4 kg (228 lb) 01/09/2025 2:21 PM CDT Height 180.3 cm (5' 11) 01/09/2025 2:21 PM CDT Body Mass Index 31.8 01/09/2025 2:21 PM CDT Plan of Treatment Upcoming Encounters Date Type Department Care Team (Late st Contact Info) Description 04/05/2025 9:00 AM CDT Office Visit [facility] [address] [address] Denise Waters, [address] [place] [address] Health Maintenance Due Date Last Done Comments Depression screening for age 12+ 10/29/2023 10/28/2022, 01/01/2021, 05/09/2020, Additional history exists Tetanus booster 06/23/2024 06/23/2014, 05/21, 06/08/2006 COVID-19 vaccine series ( season) 2024 04/21/2024, 05/08/2023, 05/26/2022, Additional history exists BMI (ht and wt on same day) for age 18+ 01/09/2026 01/09/2025, 12/07/2024, 11/22/2024, Additional history exists Tdap Completed 06/23/2014, 06/08/2006 Zoster (shingles) series for age 50+ Completed 02/09/2019, 10/26/2018, 06/10/2011 Pneumococcal series for age 50+ Completed 10/28/2022, 03/22/2015, 05/15/2011 RSV vaccine for adults or Completed 04/20/2023 Influenza Vaccine Completed 04/21/2024, , 04/26/2020, Additional history exists Hepatitis B series for 19+ Aged Out N o longer eligible based on patient's age to complete this topic Procedures Procedure Name Priority Date/Time Associated Diagnosis Comments SCAN CORRESP-LABORATORY RESULTS 01/12/2025 12:00 AM CDT EKG 12 LEAD Routine 01/09/2025 2:24 PM CDT Severe aortic stenosis CT CARDIAC MORPHOLOGY W CV DUAL READ Routine 12/30/2024 1:18 PM CDT Severe aortic stenosis CT CARDIAC MORPHOLOGY W RAD DUAL READ Routine 12/30/2024 1:18 PM CDT Severe aortic stenosis BASIC METABOLIC PANEL Routine 12/30/2024 10:36 AM CDT Severe aortic stenosis Leg edema Dyspnea, unspecified type S/P TAVR (transcatheter aortic valve replacement) PRO-BNP Routine 12/30/2024 10:36 AM CDT Severe aortic stenosis Leg edema Dyspnea, unspecified type S/P TAVR (transcatheter aortic valve replacement) CBC W PLT NO DIFF Routine 12/30/2024 10: 36 AM CDT Severe aortic stenosis Leg edema Dyspnea, unspecified type S/P TAVR (transcatheter aortic valve replacement) ECHO TTE LIMITED W CONTRAST Routine 12/30/2024 10:27 AM CDT Severe aortic stenosis CARDIAC EVENT MONITOR Routine 12/29/2024 PRO-BNP Routine 12/07/2024 3:01 PM CDT Severe aortic stenosis Leg edema BASIC METABOLIC PANEL Routine 12/05/2024 11:29 AM CDT Severe aortic stenosis CBC W PLT NO DIFF Routine 12/05/2024 11: 29 AM CDT Severe aortic stenosis GLUCOSE METER Timed 12/01/2024 8:01 AM CDT MAGNESIUM Early AM 12/01/2024 6:00 AM CDT BASIC METABOLIC PANEL Early AM 12/01/2024 6:00 AM CDT CBC W PLT NO DIFF Early AM 12/01/2024 6:0 0 AM CDT EKG 12 LEAD Early AM 12/01/2024 5:10 AM CDT SCAN-CARDIAC STRIP 12/01/2024 2: 51 AM CDT BASIC METABOLIC PANEL STAT 11/30/2024 7:18 PM CDT MAGNESIUM STAT 11/30/2024 7:18 PM CDT EKG 12 LEAD APARNA 11/30/2024 6:41 PM CDT ECHO TTE LIMITED WO CONTRAST W COLOR W LTD DOPPLER Routine 11/30/2024 6:38 PM CDT HCHG ACTIVATED CLOTTING TM CV Timed 11/30/2024 4:55 PM CDT CVL TAVR Routine 11/30/2024 4:40 PM CDT RBC W/O TYPE & SCREEN STAT 11/30/2024 2:15 PM CDT RED BLOOD CELLS EA UNIT STAT 11/30/2024 2:00 PM CDT RED BLOOD CELLS EA UNIT STAT 11/30/2024 2:00 PM CDT TYPE & SCREEN Preop 11/30/2024 1:54 PM CDT EXTRA TUBE LAVENDER Today 11/30/2024 1 :54 PM CDT EXTRA TUBE GOLD/SST Today 11/30/2024 1 :54 PM CDT GLUCOSE, FASTING Preop 11/30/2024 1:54 PM CDT RECTANGULAR TANK COOPER QUESTION TEST Routine 11/22/2024 11:45 AM CDT Aortic valve stenosis, etiology of cardiac valve disease unspecified TYPE & SCREEN Routine 11/22/2024 11:45 AM CDT Aortic valve stenosis, etiology of cardiac valve disease unspecified ALBUMIN Routine 11/22/2024 11:45 AM CDT Aortic valve stenosis, etiology of cardiac valve disease unspecified Pre-op testing CBC W PLT NO DIFF Routine 11/22/2024 11: 45 AM CDT Aortic valve stenosis, etiology of cardiac valve disease unspecified PRO-BNP Routine 11/22/2024 11:45 AM CDT Aortic valve stenosis, etiology of cardiac valve disease unspecified Dyspnea, unspecified type BASIC METABOLIC PANEL Routine 11/22/2024 11:45 AM CDT Aortic valve stenosis, etiology of cardiac valve disease unspecified EKG 12 LEAD Routine 11/22/2024 10:31 AM CDT Aortic valve stenosis, etiology of cardiac valve disease unspecified CVL CORONARY ANGIOGRAM POSS PCI Routine 11/08/2024 3:23 PM CDT Cardiovascular symptoms EKG 12 LEAD APARNA 11/08/2024 12:30 PM CDT EXTRA TUBE GOLD/SST Today 11/08/2024 1 1:52 AM CDT CBC W PLT NO DIFF APARNA 11/08/2024 11: 52 AM CDT BASIC METABOLIC PANEL APARNA 11/08/2024 11:52 AM CDT EKG 12 LEAD Today 10/24/2024 1:17 PM CDT Aortic valve stenosis, etiology of cardiac valve disease unspecified from Last 3 Months Results * SCAN CORRESP-LABORATORY RESULTS (01/12/2025 12:00 AM CDT) us Scanner OTHER Final Result * EKG 12 LEAD (01/09/2025 2:24 PM CDT) Only the most recent of6 resultswithin the time period is included. Interpretation Normal sinus rhythm Left bundle branch block Abnormal ECG When compared with ECG of 01-Dec-2024 05:10, T wave inversion no longer evident in Inferior leads Ventricular Rate 87 BPM Atrial Rate 87 BPM P-R Interval 176 ms QRS Duration 138 ms QT 394 ms QTc 474 ms P [place] 63 degrees R [place] 55 degrees T [place] 54 degrees 01/09/2025 2:24 PM CDT 01/09/2025 5:14 PM CDT us Jair Helm MD, PhD EKG ORD Fin al Result * CT CARDIAC MORPHOLOGY W CV DUAL READ (12/30/2024 1:18 PM CDT) Anatomical Region Laterality Modality HEART Computed Tomogra phy Narrative 12/30/2024 2:05 PM CDT STUDY: CT CARDIAC MORPHOLOGY Study date: 12/30/2024 Indication: 84 year-old male status post transcatheter aortic valve replacement procedure with a 34 mm Evolut on 11/30/24 who has been referred for evaluation of prosthetic leaflet function and morphology. STUDY PARAMETERS: Scanner: Siemens Definition Force Contrast: 90 ml of Omnipaque 350 Scan protocol: Helical with dose modulation Radiation dose length product: 1269 Image quality: Good FINAL IMPRESSIONS: 34 mm Evolut prosthetic aortic valve that is well seated. 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 Small amount of sinus thrombosis of the non coronary cusp. Minimal HALT of the left coronary leaflet. Normal right coronary leaflet. Normal left ventricular systolic function. No evidence of left atrial thrombus. Mildly dilated ascending aorta. Please see radiology report for noncardiac findings. FINDINGS: Aortic valve: Well-seated 34 mm Evolut prosthesis. Non coronary leaflet with grade 3 HALT and moderate leaflet restriction. There is sinus thrombosis within the base of the non coronary cusp. Left coronary leaflet with minimal HALT and normal leaflet excursion. Right coronary cusp appears normal. Left ventricle: Normal systolic function. Mitral valve: Mild annular calcification with mild restriction of the posterior leaflet. Left atrium: No evidence of thrombus Pulmonary veins: Normal anatomy with 2 right-sided and 2 left-sided veins. Pericardium: Normal without effusion Thoracic aorta: Mild atheromatous disease in the visualized descending thoracic aorta. Maximum cross-sectional dimensions in visualized aorta are: Aortic sinus: 36 x 38 x 35 mm maximum [id number]. Ascending aorta: 42 x 42 mm and area height ratio of 7.8 cm2/m Descending thoracic aorta: 30 x 29 mm. FOR PATIENT: Results are automatically released to your [employer] ([employer]) account once available, in compliance with federal regulations. This means that you may see your results before your provider has had a chance to review them. Please allow 2-3 business days for your provider to comment on the results. 12/30/2024 Dank Callaway MD General Timber Trimmer Reddy Regan MD, [facility] Alice PICKARD CT Fi nal Result * CT CARDIAC MORPHOLOGY W RAD DUAL READ (12/30/2024 1:18 PM CDT) Anatomical Region Laterality Modality HEART Computed Tomogra phy 12/30/2024 7:03 PM CDT Narrative 12/30/2024 7:03 PM CDT For Patients: As a result of the Cures Act, medical imaging exams and procedure reports are released immediately into your electronic medical record. You may view this report before your referring provider. If you have questions, please contact your health care provider. THIS IS THE RADIOLOGY OVER READ REPORT OF A DUAL READ STUDY. READ THE SEPARATE CARDIOLOGY REPORT FOR CARDIOVASCULAR FINDINGS. REPORTS MAY BE FINALIZED AT DIFFERENT TIMES. COMPARISON : CTA chest 10/12/2024 TECHNIQUE : Please see cardiology report for technical information. This exam is being performed in conjunction with the services provided by the [facility] ([facility]). INDICATION: Cardiac over-read. FINDINGS: Aorta: This is reported by cardiology. Mediastinum: No adenopathy. Pulmonary arteries: Bolus timing may limit evaluation. Visualized/opacified pulmonary arteries demonstrate no filling defects. Lungs and pleural structures: Clear with no pleural effusions or suspicious nodules. Miscellaneous: No acute or suspicious skeletal or upper abdominal imaging abnormality. IMPRESSION : 1. See separate cardiology report for cardiac findings. 2. No new significant extra cardiac imaging abnormality. Please note that all CT scans at this facility use dose modulation, iterative reconstruction, and/or weight-based dosing when appropriate to reduce radiation dose to as low as reasonably achievable. Dictated by Chito Waldron MD @ 12/30/2024 7:03:40 PM (Electronically Signed) Procedure Note Chito Waldron MD - 12/30/2024 For Patients: As a result of the Cures Act, medical imagingexams and procedure reports are released immediately into your electronicmedical record. You may view this report before your referring provider.If you have questions, please contact your health care provider. THIS IS THE RADIOLOGY OVER READ REPORT OF A DUAL READ STUDY. READ THESEPARATE CARDIOLOGY REPORT FOR CARDIOVASCULAR FINDINGS. REPORTS MAY BEFINALIZED AT DIFFERENT TIMES. COMPARISON : CTA chest 10/12/2024 TECHNIQUE : Please see cardiology report for technical information. This exam is being performed in conjunction with the services provided bythe [facility] ([facility]). INDICATION: Cardiac over-read. FINDINGS: Aorta: This is reported by cardiology. Mediastinum: No adenopathy. Pulmonary arteries: Bolus timing may limit evaluation. Visualized/opacified pulmonary arteriesdemonstrate no filling defects. Lungs and pleural structures: Clear with no pleural effusions orsuspicious nodules. Miscellaneous: No acute or suspicious skeletal or upper abdominal imagingabnormality. IMPRESSION : 1. See separate cardiology report for cardiac findings. 2. No new significant extra cardiac imaging abnormality. Please note that all CT scans at this facility use dose modulation,iterative reconstruction, and/or weight-based dosing when appropriate toreduce radiation dose to as low as reasonably achievable. Dictated by Chito Waldron MD @ 12/30/2024 7:03:40 PM (Electronically Signed) Alice PICKARD CT Fi nal Result * (ABNORMAL) CBC W PLT NO DIFF (12/30/2024 10:36 AM CDT) Only the most recent of5 resultswithin the time period is included. WHITE BLOOD CELL COUNT 3.9 3.8 - 10.8 Thousand/u L [facility] ( RED BLOOD CELL COUNT 4.17(L) 4.20 - 5.80 Million/uL [facility] ( HEMOGLOBIN 12.2(L) 13.2 - 17.1 g/dL [facility] ( HEMATOCRIT 38.1(L) 38.5 - 50.0 % [facility] ( MCV 91.4 80.0 - 100.[address] [facility] ( MCH 29.3 27.0 - 33.[address] [facility] ( MCHC 32.0 32.0 - 36.0 g/dL [facility] ( Comment: For adults, a slight decrease in the calculated MCHC value (in the range of 30 to 32 g/dL) is most likely not clinically significant; however, it should be interpreted with caution in correlation with other red cell parameters and the patient's clinical condition. RDW 13.7 11.0 - 15.0 % [facility] ( PLATELET COUNT 155 140 - 400 Thousand/u L [facility] ( MPV 9.6 7.5 - 12.[address] [facility] ( Blood BLOOD SPECIMEN / Unknown 12/30/2024 10:36 AM CDT 12/30/2024 10:36 AM CDT Mayra PICKARD HEMATOLOGY Final Res ult [facility] [address] [place] [address], [facility] ( [address] [place] [address] * (ABNORMAL) PRO-BNP (12/30/2024 10:36 AM CDT) Only the most recent of3 resultswithin the time period is included. Pathologist [facility] NT PROBNP 482(H) <450 pg/mL [facility] Blood BLOOD SPECIMEN / Unknown 12/30/2024 10:36 AM CDT 12/30/2024 10:36 AM CDT Mayra PICKARD SEND OUTS Final Res ult Performing Organization Address [facility]/ZIP Co de Phone Number [facility] [address] [place] [address], [facility] [address] [place] [address] * (ABNORMAL) BASIC METABOLIC PANEL (12/30/2024 10:36 AM CDT) Only the most recent of6 resultswithin the time period is included. Pathologist [facility] GLUCOSE 86 65 - 99 mg/dL [facility] Comment: Fasting reference interval UREA NITROGEN (BUN) 20 7 - 25 mg/dL [facility] CREATININE 1.34(H) 0.70 - 1.22 mg/dL [facility] EGFR 53(L) > OR = 60 mL/min/1.7 3m2 [facility] BUN/CREATININE RATIO 15 6 - 22 (calc) [facility] SODIUM 142 135 - 146 mmol/L [facility] POTASSIUM 4.9 3.5 - 5.3 mmol/L [facility] CHLORIDE 105 98 - 110 mmol/L [facility] CARBON DIOXIDE 28 20 - 32 mmol/L [facility] ELECTROLYTE BALANCE 9 7 - 17 mmol/L (calc) [facility] CALCIUM 9.5 8.6 - 10.3 mg/dL [facility] Blood BLOOD SPECIMEN / Unknown 12/30/2024 10:36 AM CDT 12/30/2024 10:36 AM CDT Mayra PICKARD CHEMISTRY Final Res ult Performing Organization Address City/[facility]/ZIP Co de Phone Number [facility] [address] [place] [address], [facility] [address] [place] [address] * ECHO TTE LIMITED W CONTRAST (12/30/2024 10:27 AM CDT) Only the most recent of2 resultswithin the time period is included. AORTIC VALVE MEAN PG 11 mmHg EJECTION FRACTION 50 % LVEDD 5.6 cm EJECTION FRACTION 55 - 60% Anatomical Region Laterality Modality Ultrasound 12/30/2024 9:32 AM CDT Narrative 12/30/2024 11:47 AM CDT ECHOCARDIOGRAM LARRY PERES : 1940 84 years Study Date: 12/30/2024 9:32:43 AM Gender: M BP: 112/81 mmHg Height: 180.34 cm BSA: 2.26 m Weight: 107.05 kg Tech: VERONICA Referring MD: ALICE CH Site: [facility] Reading Location: Mobile-OP Patient Location: Outpatient. Procedure: Limited Echo w/ Contrast, Color Doppler and Limited Spectral Doppler. Indication for study: Severe aortic stenosis Cardiac Rhythm: Regular.Study quality: Fair. Final Impressions: Limited Echocardiogram performed 1. Normal LV size, normal global systolic function with an estimated EF of 55 - 60%. 2. Right ventricular cavity size is normal, global systolic RV function is mildly reduced. 3. The aortic valve is a normal functioning 34mm Evolut, no stenosis and no regurgitation. EOA 1.9cm2, MG 11mmHg. 4. Echo contrast was administered to enhance visualization of all left ventricular segments. Chamber Sizes and Function Normal left ventricular size, borderline wall thickness, normal global systolic function with an estimated EF of 55 - 60%. No resting regional wall motion abnormality visualized. Left atrial size is normal. Left atrial pressure is normal. Right ventricular cavity size is normal, global systolic RV function is mildly reduced. RV wall thickness is normal. The right atrium is normal. The pulmonary artery is of normal size and origin. The sinus of Valsalva is not well visualized. The ascending aorta is normal sized. Valves, RV Pressures and Diastolic Function The aortic valve is 34mm Evolut, no stenosis and no regurgitation. The mitral valve is normal in structure, trace mitral regurgitation. The tricuspid valve is normal in structure, trace tricuspid regurgitation. The pulmonic valve is normal. No pulmonic regurgitation is present on color flow. Masses, Effusion, Shunts There is no pericardial effusion. The inferior vena cava is normal sized, respiratory size variation greater than 50%. No left to right shunting was detected by limited color flow Doppler interrogation of the interatrial septum. MEASUREMENTS AND CALCULATIONS 2-D Measurements and LV Function: LVID (d) 5.6 cm LV FS% (2D) 23 % LVID (s) 4.3 cm LVOT diameter 2.5 cm IVS (d) 1.1 cm HR 56 bpm LVPW (d) 1.0 cm RV Basal Diam 3.6 cm Ao Sinus ULN 4.2 cm * Asc Ao 3.7 cm Asc Ao ULN 4.4 cm * LA 4.4 cm * Input BSA and age are outside of ranges, reported values correspond to BSA = 2.1 and Age = 81 Aortic Valve: Vmax 2.2 m/s ELIZABETH (V) 1.92 cm VTI 0.51 m ELIZABETH (I) 1.84 cm LVOT V max 0.9 m/s Max PG 20 mmHg LVOT VTI 0.19 m Mean PG 11 mmHg SV 95 ml Dim Index 0.38 SV index 42 ml/m CO 5.3 l/min CI 2.3 l/min/m Tricuspid Valve and estimated PA pressures: TAPSE 1.8 cm Contrast documentation: 2 cc ml diluted Definity, lot #[id number], [facility]# [id number] was administered peripherally to enhance visualization of all left ventricular segments. . This study was interpreted by an [facility] accredited facility. Final Procedure Note Armin Arita MD - 12/30/2024 ECHOCARDIOGRAM LARRY PERES : 1940 84 years Study Date: 12/30/2024 9:32:43 AM Gender: M BP: 112/81 mmHg Height: 180.34 cm BSA: 2.26 m Weight: 107.05 kg Tech: VERONICA Referring MD: ALICE CH Site: [facility] Reading Location: Mobile-OP Patient Location: Outpatient. Procedure: Limited Echo w/ Contrast, Color Doppler and Limited SpectralDoppler. Indication for study: Severe aortic stenosis Cardiac Rhythm: Regular.Study quality: Fair. Final Impressions: Limited Echocardiogram performed 1. Normal LV size, normal global systolic function with an estimated EFof 55 - 60%. 2. Right ventricular cavity size is normal, global systolic RV functionis mildly reduced. 3. The aortic valve is a normal functioning 34mm Evolut, no stenosis andno regurgitation. EOA 1.9cm2, MG 11mmHg. 4. Echo contrast was administered to enhance visualization of all leftventricular segments. Chamber Sizes and Function Normal left ventricular size, borderline wall thickness, normal globalsystolic function with an estimated EF of 55 - 60%. No resting regionalwall motion abnormality visualized. Left atrial size is normal. Leftatrial pressure is normal. Right ventricular cavity size is normal, globalsystolic RV function is mildly reduced. RV wall thickness is normal. Theright atrium is normal. The pulmonary artery is of normal size and origin.The sinus of Valsalva is not well visualized. The ascending aorta isnormal sized. Valves, RV Pressures and Diastolic Function The aortic valve is 34mm Evolut, no stenosis and no regurgitation. Themitral valve is normal in structure, trace mitral regurgitation. Thetricuspid valve is normal in structure, trace tricuspid regurgitation. Thepulmonic valve is normal. No pulmonic regurgitation is present on colorflow. Masses, Effusion, Shunts There is no pericardial effusion. The inferior vena cava is normal sized,respiratory size variation greater than 50%. No left to right shunting wasdetected by limited color flow Doppler interrogation of the interatrialseptum. MEASUREMENTS AND CALCULATIONS 2-D Measurements and LV Function: LVID (d) 5.6 cm LV FS% (2D)23 % LVID (s) 4.3 cm LVOT diameter2.5 cm IVS (d) 1.1 cm HR56 bpm LVPW (d) 1.0 cm RV Basal Diam3.6 cm Ao Sinus ULN 4.2 cm * Asc Ao 3.7 cm Asc Ao ULN 4.4 cm * LA 4.4 cm * Input BSA and age are outside of ranges, reported values correspond to BSA = 2.1 and Age = 81 Aortic Valve: Vmax 2.2 m/s ELIZABETH (V) 1.92 cm VTI 0.51 m ELIZABETH (I) 1.84 cm LVOT V max 0.9 m/s Max PG 20 mmHg LVOT VTI 0.19 m Mean PG 11 mmHg SV 95 ml Dim Index 0.38 SV index 42 ml/m CO 5.3 l/min CI 2.3 l/min/m Tricuspid Valve and estimated PA pressures: TAPSE 1.8 cm Contrast documentation: 2 cc ml diluted Definity, lot #[id number], [facility]#[id number] was administered peripherally to enhance visualization of allleft ventricular segments. . This study was interpreted by an [facility] accredited facility. Final Alice Ch PA ECHO ORD Fi nal Result * Event Monitor (real-time) (12/29/2024) Narrative Lew Acuna [facility] - 12/29/2024 Extended holter placed on this patient at [facility] on 5 for 14 days. Report will be found in the Procedures tab approximately 7-10 days after end of monitor period. us Harpreet Raines [facility] ORD Final Result * GLUCOSE METER (12/01/2024 8:01 AM CDT) GLUCOSE METER 97 65 - 100 mg/dL 12/01/2024 8:16 AM CDT [facility] Blood BLOOD SPECIMEN / Unknown 12/01/2024 8:01 AM CDT 12/01/2024 8:16 AM CDT us Jair Helm MD, PhD CHEMISTRY Fin al Result [facility] [employer] [facility] [address] [address], [place] * MAGNESIUM (12/01/2024 6:00 AM CDT) Only the most recent of2 resultswithin the time period is included. MAGNESIUM 1.8 1.6 - 2.4 mg/dL 12/01/2024 7:25 AM CDT [facility] Blood BLOOD SPECIMEN / Unknown Venipuncture / Unknown 12/01/2024 6:00 AM CDT 12/01/2024 6:52 AM CDT Jair Helm MD, PhD CHEMISTRY Fin al Result Performing Organization Address [facility] Co de Phone Number [facility] [address] [place] [address], [place] * SCAN-CARDIAC STRIP (12/01/2024 2:51 AM CDT) Scanner OTHER Final Result * (ABNORMAL) ACTIVATED CLOTTING TIME CBP249 ACT (11/30/2024 4:55 PM CDT) ACTIVATED CLOTTING TIME, POCT 267(H) 74 - 125 sec 11/30/2024 11:41 PM CDT [facility] Blood BLOOD SPECIMEN / Unknown 11/30/2024 4:55 PM CDT 11/30/2024 11:41 PM CDT Jair Helm MD, PhD HEMATOLOGY Fin al Result Performing Organization Address City/[facility]/ZIP Co de Phone Number [facility] [address] [place] [address], [place] * CVL TAVR (11/30/2024 4:40 PM CDT) Anatomical Region Laterality Modality X-Ray Angiograph y 11/30/2024 4:40 PM CDT Narrative Procedure Note Jair Helm MD, PhD - 11/30/2024 5:49 PM CDT DATE OF SERVICE: 11/30/24 PROCEDURE: Transcatheter aortic valve implantation. PREOPERATIVE DIAGNOSIS: Severe aortic stenosis POSTOPERATIVE DIAGNOSIS: s/p TAVR OPERATORS: Jair Helm MD, PhD Bhupinder Alcaraz, [facility] Faisal Adan MD DESCRIPTION The risks, benefits and alternatives to the procedure were discussed withthe patient and family. Informed consent was obtained from the patientprior to proceeding. The patient was brought to the hybrid operating roomand sedated with conscious sedation. The chest, neck and groins wereprepped and draped in the usual sterile fashion. Ultrasound-guided accesswas performed for placing sheath in the left common femoral vein and bothfemoral arteries. Through the right femoral artery, 2 ProGlide sutureswere placed. We then crossed the aortic valve in standard fashion with anAL1 catheter and a J-tip wire. The mean gradient was 31.3 mmHg,consistent with a diagnosis of severe aortic valve stenosis. A temporarypacemaker was advanced into the right ventricle with active fixation usedto obtain adequate thresholds. Pre-dilatation was performed with a Trueballoon 24mm.We then exchanged for an Evolut FX+ 34mm which was deployedin a single deployment. Post-dilatation was performed with a True [id number]. There was no evidence of significant AR. The mean gradient fell to6.0 mmHg. The arterial access sites were closed using the ProGlidesutures. The pacemaker was removed as there was no conduction delay.There were no complications. The patient was transferred to anesthesiarecovery unit in hemodynamically stable condition. Jair Helm MD, PhD Cargo Inspector [facility] [address], [address] [place] [address] O: [phone] F: [phone] Transcriptions Jair Helm MD, PhD - 12/13/2024 4:36 PM CDT [facility] Cardiac Catheterization Report Name: LARRY PERES Event Date: 11/30/2024 16:40 [employer] ID #: [id number] [facility] #: [id number] Patient Class: Outpatient Diagnostic Physician: JAIR HELM [facility] Interventional Physician: DEBI HELMANTINOS [facility] Referring Physician: Primary Care Physician: BRADEN RAMIREZ Date: 1940 Gender: Male Age: 84 Summary/Conclusions PRESENTATION / INDICATIONS * Severe aortic valve stenosis VASCULAR ACCESS * Using ultrasound guidance and a percutaneous technique, the right commonfemoral artery was accessed. Ultrasound was used to confirm vesselpatency, localizing needle into the lumen of the vessel. An image wassaved for the medical record. * Using ultrasound guidance and a percutaneous technique, the left commonfemoral artery was accessed. Ultrasound was used to confirm vesselpatency, localizing needle into the lumen of the vessel. An image wassaved for the medical record. * Using ultrasound guidance and a percutaneous technique, the left femoralvein was accessed. Ultrasound was used to confirm vessel patency,localizing needle into the lumen of the vessel. An image was saved for themedical record. VALVULAR AND STRUCTURAL HEART INTERVENTION * Transcatheter aortic valve replacement (TAVR) was performed using anEvolut FX+ 34mm * The mean gradient was reduced from 31.3 to 6 mmHg SPECIAL EQUIPMENT * A temporary pacemaker was inserted during the procedure. SPECIAL PROCEDURES * Right femoral arteriotomy was successfully closed utilizing a closuredevice * Left femoral arteriotomy was successfully closed utilizing a closuredevice RECOMMENDATIONS & PLAN * Medical Rx * Follow up with primary physician * Follow up with pick and shovel worker Consent & Gepp Protocol The risks, benefits, and alternatives of the procedure were discussed withthe patient and written informed consent was obtained. Gepp protocol was followed. TIME OUT conducted just prior tostarting procedure confirmed patient identity, site/side, procedure,patient position, and availability of correct equipment and implants (ifapplicable). Staff Name Title Jair Helm Cargo Inspector Loco Malone Fellow Yoana Watts RN Shelby Pringle RN Khalida Ohara RTR Monitor Sanjay Moreno CVT Certified Medication Technician Charlie Harding CVT Certified Medication Technician Jerri Chavez RN Nurse Procedures ? Ultrasound Guided Vascular Access ? Left Heart Cath No Ventriculogram ? Temporary Pacemaker ? Aortic Root Angiogram ? Valvuloplasty Aortic ? TAVR Transfemoral ? Femoral Closure Device ? Femoral Closure Device Hemodynamics State: Baseline Pressures (mmHg) Site Systolic Diastolic End Diastolic A Wave V Wave Mean LV 214 14 35 AO 190 95 131 Valves Aortic Valve Mean Gradient: 31.27 State: Phase 2 Pressures (mmHg) Site Systolic Diastolic End Diastolic A Wave V Wave Mean LV 207 18 38 AO 197 101 140 LV 152 12 19 AO 150 82 107 Valves Aortic Valve Mean Gradient: 5.98 Procedure Details Estimated Blood Loss: < 30 ml Specimen Collected: None Level of Sedation Achieved: Moderate Procedure Start: 16:40 Fluoroscopy Time: 15.5 min Cumulative Air Kerma: 772 mGy DAP: 8924 uGy/M2 Contrast: Omnipaque (low-osmolar), 43 ml Physiologic Data Weight: 103.6 kg BSA: 2.23 m2 Vascular Access Time Access Sheath Size 16:44 Left Femoral Artery, sheath inserted 16:45 Left Femoral Vein, sheath inserted. 16:50 Right Femoral Artery, sheath inserted Medications Ordered and Administered Start Time Stop Time Medication Dose Units Route Ordered By Given By 16:26 Fentanyl 50 mcg IV Jair Helm Leesa RN 16:26 Versed 1 mg IV Jair Helm Leesa RN 16:40 1% Lidocaine 10 ml Subcut Jair Helm OwaisShakir 16:46 Heparin 21120 units IV Jair Helm Leesa RN 16:48 1% Lidocaine 10 ml Subcut Jair Helm Konstantinos 16:50 Fentanyl 25 mcg IV Jair Hlem Leesa RN 16:50 Versed 0.5 mg IV Jair Helm Leesa RN 16:56 Heparin 1000 units IV Jair Helm Leesa RN 17:00 Fentanyl 25 mcg IV Jair Helm Leesa RN 17:00 Versed 0.5 mg IV Jair Helm Leesa RN 17:07 Hydralazine 10 mg IV Jair Helm Leesa RN 17:16 Hydralazine 10 mg IV Jair Helm Leesa RN 17:21 (New Bottle) Nitroglycerin 75 mcg per min IV Bethel Helm Leesa RN 17:28 Protamine 60 mg IV Jair Helm Erin M RN 17:29 (New Bottle) Nitroglycerin 50 mcg per min IV Robert Helm Erin M RN 17:31 Atropine 0.5 mg IV Jair Helm Erin M RN 17:32 (Existing) Nitroglycerin 0 mcg per min IV Robert Helm Erin M RN 17:33 Neosynephrine (Phenylephrine) 200 mcg IV Robert Helm Erin M RN 17:34 Neosynephrine (Phenylephrine) 100 mcg IV Robetr Helm Erin M RN I personally monitored the patient?s conscious sedation during theprocedure. Conscious sedation starts with the first sedation medication dose ofFentanyl or Versed and ends when the procedure is completed, the patientis stable for recovery status, and the physician or other qualified healthcare professional providing the sedation ends personal [id number]-ph-[id number] time with the patient. The medications listed above were verbally ordered by me and read back tome as documented above. Refer to the procedure log report for additional case details. electronically signed on 12/13/2024 4:36:46 PM with status of Final Jair Helm MD [facility] [address] [place] [address] (p) [phone](f) us Jair Helm MD, PhD CV IMAGING Ga nguyen Result - Final * RBC W/O TYPE & SCREEN (11/30/2024 2:15 PM CDT) Pathologist [facility] 2 11/30/2024 2:1 5 PM CDT [facility] LAB BLOOD BANK Blood BLOOD SPECIMEN / Unknown 11/30/2024 1:51 PM CDT us Jair Helm MD, PhD BLOOD BANK Ga nguyen Result - Final Performing Organization Address [facility] Co de Phone Number [facility]ENTRAL [facility] BLOOD BANK [address] [place] [address], * RED BLOOD CELLS EA UNIT (11/30/2024 2:00 PM CDT) Only the most recent of2 resultswithin the time period is included. CROSSMATCH Compatible Compatible [facility] PRODUCT BLOOD TYPE O Rh Positive [facility] PRODUCT ID NUMBER [id number] [facility] PRODUCT STATUS /Relea sed [facility] BLOOD B[facility] PRODUCT DESCRIPTION RBC -1 LR [facility] PRODUCT CODE [id number] [facility] Jair Helm MD, PhD BLOOD BANK Ga nguyen Result - Final Performing Organization Address [facility]/ZIP Co de Phone Number [facility] BLOOD BANK [address] [place] [address], * EXTRA TUBE LAVENDER (11/30/2024 1:54 PM CDT) Blood BLOOD SPECIMEN / Unknown Non-Lab Venipuncture / Unknown 11/30/2024 1:54 PM CDT 11/30/2024 2:19 PM CDT Jair Helm MD, PhD LABORATORY Fin al Result Performing Organization Address [facility] Co de Phone Number [facility] [facility]ORAT[facility] [address] [place] [address], [place] * EXTRA TUBE GOLD/SST (11/30/2024 1:54 PM CDT) Only the most recent of2 resultswithin the time period is included. Blood BLOOD SPECIMEN / Unknown Non-Lab Venipuncture / Unknown 11/30/2024 1:54 PM CDT 11/30/2024 2:19 PM CDT Jair Helm MD, PhD LABORATORY Fin al Result [facility]ORATORY [address] [place] [address], * TYPE & SCREEN (11/30/2024 1:54 PM CDT) Only the most recent of2 resultswithin the time period is included. ABORH O Rh Positive 11/30/2024 2:50 PM CDT [facility]LO[facility] ANTIBODY SCREEN Negative Negative 11/30/2024 2:50 PM CDT [facility] SPECIMEN EXPIRATION DATE/TIME 12/03/24 23:59 11/30/2024 2:50 PM CDT [facility] BLOOD B[facility] Blood BLOOD SPECIMEN / Unknown Venipuncture / Unknown 11/30/2024 1:54 PM CDT 11/30/2024 2:08 PM CDT Alice PICKARD BLOOD BANK Fi nal Result Performing Organization Address City/[facility]/ZIP Co de Phone Number [facility]OD [facility]ANK [address] [place] [address], * Glucose, Fasting (11/30/2024 1:54 PM CDT) Pathologist [facility] GLUCOSE 95 70 - 99 mg/dL 11/30/2024 2:42 PM CDT [facility] Blood BLOOD SPECIMEN / Unknown Venipuncture / Unknown 11/30/2024 1:54 PM CDT 11/30/2024 2:08 PM CDT Alice PICKARD CHEMISTRY Fi nal Result [facility] LABORATORY [address] [place] [address], * RECTANGULAR TANK COOPER QUESTION TEST (11/22/2024 11:45 AM CDT) Pathologist [facility] QABT Question Yes 11/22/2024 11:58 AM CDT [facility] Blood BLOOD SPECIMEN / Unknown Non-Lab Venipuncture / Unknown 11/22/2024 11:45 AM CDT 11/22/2024 11:52 AM CDT Jair Helm MD, PhD BLOOD BANK Fin al Result Performing Organization Address City/[facility]/ZIP Co de Phone Number [facility] [address] [place] [id number], * ALBUMIN (11/22/2024 11:45 AM CDT) ALBUMIN 4.0 4.0 - 4.9 g/dL 11/22/2024 12:40 PM CDT [facility] Blood BLOOD SPECIMEN / Unknown Non-Lab Venipuncture / Unknown 11/22/2024 11:45 AM CDT 11/22/2024 11:52 AM CDT Patrick Wilson MD CHEMISTRY Final Result Performing Organization Address [facility] Co de Phone Number [facility] [address] [place] [address], * CVL CORONARY ANGIOGRAM POSS PCI (11/08/2024 3:23 PM CDT) Anatomical Region Laterality Modality X-Ray Angiograph y, X-Ray Angiography 11/08/2024 3:23 PM CDT Narrative Transcriptions Jair Helm MD, PhD - 11/08/2024 6:34 PM CDT [facility] Cardiac Catheterization Report Name: LARRY PERES Event Date: 11/08/2024 15:23 Excellian ID #: [id number] GEN #: [id number] Patient Class: Outpatient Diagnostic Physician: JAIR HELM [facility] Referring Physician: Date: 1940 Gender: Male Age: 84 Summary/Conclusions PRESENTATION / INDICATIONS * Aortic valve stenosis VASCULAR ACCESS * Using ultrasound guidance and a percutaneous technique, the right radialartery was accessed. Ultrasound was used to confirm vessel patency,localizing needle into the lumen of the vessel. An image was saved for themedical record. DIAGNOSTIC - CORONARY * Non-obstructive coronary disease * Patent previously placed stent in the distal RCA DIAGNOSTIC SUMMARY ? The LMCA is free of significant disease. ? 40% stenosis in the Proximal LAD ? 50% stenosis in the Mid LAD ? 40% stenosis in the Proximal Circumflex ? 100% stenosis in the Distal Circumflex ? 20% stenosis in the Proximal RCA ? 0% stenosis in the Distal RCA RECOMMENDATIONS & PLAN * Medical Rx * Proceed with valve repalcement * Follow up with primary physician * Follow up with pick and shovel worker Consent & Gepp Protocol The risks, benefits, and alternatives of the procedure were discussed withthe patient and written informed consent was obtained. Gepp protocol was followed. TIME OUT conducted just prior tostarting procedure confirmed patient identity, site/side, procedure,patient position, and availability of correct equipment and implants (ifapplicable). Staff Name Title Jair Helm Diagnostic Addiction Medicine Physician Sonja Saeed RN Nurse Chucho, Carmen CVT Scrub Rosario Bateman CVT Monitor Cassius Morrow CVT Certified Medication Technician Betsey, Sixto CVT Scrub Procedures ? Ultrasound Guided Vascular Access ? Coronary Angiogram Diagnostic Findings * Left Main Coronary Artery ? The LMCA is free of significant disease. * Left Anterior Descending ? 40% stenosis in the Proximal LAD. ? 50% stenosis in the Mid LAD. * Circumflex ? 40% stenosis in the Proximal Circumflex. ? 100% stenosis in the Distal Circumflex. * Right Coronary Artery ? 20% stenosis in the Proximal RCA. ? 0% stenosis in the Distal RCA. Lesion Information Lesion # Vessel Segment Lesion Length Lesion Details Proximal RCA Distal RCA Proximal Circumflex Distal Circumflex Proximal LAD Mid LAD Hemodynamics State: Baseline Pressures (mmHg) Site Systolic Diastolic End Diastolic A Wave V Wave Mean AO 173 94 103 Procedure Details Estimated Blood Loss: < 30 ml Specimen Collected: None Level of Sedation Achieved: Moderate Procedure Start: 15:23 Procedure End: 15:49 Procedure Time: 26 min Fluoroscopy Time: 8 min Cumulative Air Kerma: 821 mGy DAP: 6937 uGy/M2 Contrast: Omnipaque (low-osmolar), 60 ml Physiologic Data Weight: 96.6 kg BSA: 2.15 m2 Vascular Access Time Access Sheath Size 15:27 Right Radial Artery, sheath inserted Complications ? No Complications Medications Ordered and Administered Start Time Stop Time Medication Dose Units Route Ordered By Given By 15:27 Fentanyl 50 mcg IV Jair Helm Carole RN 15:27 Versed 1 mg IV Jair Helm Carole RN 15:27 1% Lidocaine 1 ml Subcut Jair Helm Konstantinos 15:33 Heparin 5000 units IV Jair Helm Carole RN 15:35 O2 2 l per min Nasal cannula Jair Helm Carole RN I personally monitored the patient?s conscious sedation during theprocedure. Conscious sedation starts with the first sedation medication dose ofFentanyl or Versed and ends when the procedure is completed, the patientis stable for recovery status, and the physician or other qualified healthcare professional providing the sedation ends personal [id number]-vc-[id number] time with the patient. The medications listed above were verbally ordered by me and read back tome as documented above. Refer to the procedure log report for additional case details. 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 Healthcare Directive 10/02/2016 5:55 PM 23 SEPTEMBER 2016 * Full Code (Latest Code Status on File) Date Activated Date Inactivated Comments 11/30/2024 5:47 PM 12/01/2024 2:14 PM Question Answer Comments Code Status Discussion: Reviewed Preferences * Full Code Date Activated Date Inactivated Comments 11/08/2024 12:30 PM 11/08/2024 10:36 PM Question Answer Comments Code Status Discussion: Reviewed Preferences * Full Code Date Activated Date Inactivated Comments 01/09/2020 9:12 PM 01/11/2020 2:29 PM Care Teams Business Management Manager Relationship Specialty Start Date End Date Braden Ramirez MD [facility] [id number] PCP - General Family Practice 09/19/20
[2025-01-15] MEDS: SODIUM BICARBONATE 50 MEQ/50ML SYRINGE IVP (21:05)
[2025-01-15] MEDS: EPINEPHrine 0.1 MG/ML SYRINGE 0.5 MG IVP (21:05)
[2025-01-15] MEDS: 0.9 % SODIUM CHLORIDE 1000 ml 1,000 ML IV (21:05)
--- NOTE | 2025-01-15 21:26 | ED.GENADULT ---
HPI - General Adult General Date Seen: 01/15/25 Chief complaint: Cardiac Arrest/CPR Stated complaint: Cardiac Arrest Time Seen by Provider: 01/15/25 21:24 History of Present Illness HPI narrative: This is an 84-year-old young brought to the ER today by EMS from his for VFib cardiac arrest. Initial history is obtained by EMS phone call prior to arrival. Initial EMS phone call reported that the patient had a witnessed VFib arrest with bystander CPR and rapid response time. He had VFib on the monitor. He had are reviewed received multiple shocks and 3 doses of epi as well as a total of 450 mg of amiodarone. EMS CPR had been been ongoing about 20 minutes at the time of 1st call. Epi noted that he remained in VFib and was not degenerating into PE a or asystole. He had an end-tidal CO2 of 45. They requested medical guidance. We suggested that they attempt dual sequential defibrillation and add lidocaine as and additional anti arrhythmic. They do not have beta blockers in their kit. Second call from EMS after attempting dual sequential defer relation is that he remains in VFib. He is intubated. They are able to get a reasonable pulse ox waveform with a pulse ox of 88%. They requested additional guidance. He remains in VFib. Down time is now in excess of half an hour. Since VFib is a potentially cell bowl rhythm min, they will call dispatch see if they can have [facility] picked the patient up and take him to a ECMO center with CPR in progress. Additional phone call from EMS. [facility] will respond to the helipad here in [facility] and the EMS rig will transport the patient here by ground. Helicopter will meet the patient here in the ER and if were not able to get amount of VFib, they can fly him to an echo center. EMS arrived. At the time of arrival they reported that he had been in V-tach on his most recent rhythm strip a few minutes ago. He has had a total of 16 shocks. Multiple rounds of epi. Now is on an epi drip. He has had a couple doses of bicarb. Blood sugar was 151. He still intubated. He is bagging easily. CPR is in progress with Tylor device. However he had degenerated into an idioventricular bradycardia just prior to arrival. He just had a heart valve surgery a few weeks ago. Related Data Home Medications ?Medication ?Instructions ?Recorded ?Confirmed aspirin 81 mg tablet,delayed 81 mg PO DAILY 04/07/22 09/24/24 release evolocumab 140 mg/mL subcutaneous 140 mg subcut Q14D 04/07/22 09/24/24 pen injector (Brad Celis) ezetimibe 10 mg tablet 10 mg PO DAILY 04/07/22 09/24/24 hydrochlorothiazide 25 mg tablet 25 mg PO DAILY 04/07/22 09/24/24 losartan 50 mg tablet 50 mg PO DAILY 04/07/22 09/24/24 metoprolol succinate 25 mg 25 mg PO DAILY 04/07/22 09/24/24 tablet,extended release 24 hr omeprazole 20 mg capsule,delayed 20 mg PO DAILY 04/07/22 09/24/24 release sildenafil 100 mg tablet 100 mg PO DAILY PRN 04/07/22 09/24/24 cholecalciferol (vitamin D3) 50 50 mcg PO DAILY 06/03/22 09/24/24 mcg (2,000 unit) tablet (Vitamin D3) gabapentin 300 mg capsule 300 mg PO QDAY 12/05/22 09/24/24 Previous Rx's ?Medication ?Instructions ?Recorded acetaminophen 500 mg capsule 500 - 1,000 mg (1 - 2 x 500 mg) PO 06/04/22 Q6H PRN #100 caps Allergies Allergy/AdvReac Type Severity Reaction Status Date / Time Hzkuwjq-ABN-CkP Reductase Allergy Myalgia Verified 09/24/24 08:42 Inhibitor pregabalin AdvReac Edema Verified 09/24/24 08:42 [facility] Medical History Protrusion of intervertebral disc of lumbosacral region ?M51.27 - Other intervertebral disc displacement, lumbosacral region (ICD-10) Lumbar degenerative disc disease ?M51.36 - Other intervertebral disc degeneration, lumbar region (ICD-10) Wheeze ?R06.2 - Wheezing (ICD-10) COPD exacerbation ?J44.1 - Chronic obstructive pulmonary disease with (acute) exacerbation (ICD-10) URI (upper respiratory infection) ?J06.9 - Acute upper respiratory infection, unspecified (ICD-10) Heart murmur ?R01.1 - Cardiac murmur, unspecified (ICD-10) Arthritis, low back ?M47.819 - Spondylosis without myelopathy or radiculopathy, site unspecified (ICD-10) Sleep apnea ?G47.30 - Sleep apnea, unspecified (ICD-10) COPD (chronic obstructive pulmonary disease) ?J44.9 - Chronic obstructive pulmonary disease, unspecified (ICD-10) GERD (gastroesophageal reflux disease) ?K21.9 - Gastro-esophageal reflux disease without esophagitis (ICD-10) Hypertension ?I10 - Essential (primary) hypertension (ICD-10) Hyperlipidemia ?E78.5 - Hyperlipidemia, unspecified (ICD-10) Heart attack (2019) ?I21.9 - Acute myocardial infarction, unspecified (ICD-10) Stroke (~1999) ?I63.9 - Cerebral infarction, unspecified (ICD-10) Osteoarthritis of left glenohumeral joint ?M19.012 - Primary osteoarthritis, left shoulder (ICD-10) Rotator cuff tear, left ?M75.102 - Unspecified rotator cuff tear or rupture of left shoulder, not specified as traumatic (ICD-10) Surgical History 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) ?Z98.890 - Other specified postprocedural states (ICD-10) History of coronary artery stent placement (2019) ?Z95.5 - Presence of coronary angioplasty implant and graft (ICD-10) S/P ORIF (open reduction internal fixation) fracture (10/16/11) ?Z98.890 - Other specified postprocedural states (ICD-10) ?Z87.81 - Personal history of (healed) traumatic fracture (ICD-10) History of arthroplasty of finger of left hand (06/15/19) ?Z96.692 - Finger-joint replacement of left hand (ICD-10) History of arthroscopy of right shoulder (06/08/12) ?Z98.890 - Other specified postprocedural states (ICD-10) 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 They live in their own home. is healthcare power of criminal attorney. Code status is full. He does not smoke but has a remote history of smoking, 25 pack years and quit over 10 years ago. He drinks approximately 1 alcoholic beverage per day. 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 Smoking Status: Former smoker What tobacco products do you use: cigarettes Smoking quit date/years: >15 years ago Do you use any of these nicotine containing products: None How often do you have a drink containing alcohol: 2-4 times a month Alcohol type: beer How many standard drinks containing alcohol do you have on a typical day: 1 or 2 AUDIT-C Alcohol total score: 2 Non-prescribed substance use: denies use Caffeine: Yes (coffee, 1 cup/am) Exam Narrative: Exam Narrative: Patient arrives by EMS on a backboard with Tylor receiving CPR. He is being bagged by EMS providers through an endotracheal tube. Tube is secured at the lip but looks a bit deep. Primary Survey: A- orally intubated. Tube is secured but looks a bit deep. I did do as part of a rapid assessment a week video laryngoscopy with the hyper angulated glide scope. We confirmed the tube is going directly through the vocal cords, visualized. The tube is deep at about 26 cm at the teeth. I deflated the balloon and removed 10 mL of air. We then pulled the tube back by 3 cm and recent cured it with the tube 23 cm at the teeth. We reinflated the balloon with 10 mL of air. Patient was bagging easily. B- bagging easily, difficult to get a good waveform because cardiac arrest is occurring. On 100% FiO2 through the endotracheal tube. C- cardiac arrest with CPR in progress. Pre-hospital reports were that the patient was in refractory VFib but upon arrival here to the ER he is in an 81 a ventricular bradycardic PE a. I am able to feel a carotid pulse with Tylor CPR in progress but has no palpable during pulse check. D- unresponsive. Eyes open. Pupils fixed and dilated. Small amount of blood on his pillow. Apparently he hit the back of his head when he arrested. No active bleeding. No obvious large skull fracture or massive scalp hematoma. No report of large volume blood loss on scene. Course Course ED Course: 84-year-old gentleman with a witnessed VFib arrest received bystander CPR and has had on a good CPR and ACLS care from paramedics. Paramedics transported him here to the ER at [facility] with plans for him to be met by air EMS to be flown to a ECMO care center. He had refractory VFib despite multiple shocks, multiple attempts at dual sequential defibrillation, multi anti arrhythmics. Based However prior to arriving here in the ER his rhythm degenerated from VFib into an idioventricular PEA. We initiated CPR. With PE a we were working through the Hs and Ts. We administered fluids for potential hypovolemia. Blood sugar was not low. We did confirm airway. The tube was a bit deep so we repositioned it. He was getting bilateral breath sounds that he was on 100% oxygen. Limited bedside lung ultrasound revealed bilateral lung sliding suggesting the absence of pneumothorax/tension pneumothorax. We administered ACLS meds. Bicarb for potential acidosis. Fluid bolus. Blood sugar normal. No history of renal failure or signs of dialysis fistula to raise concern for hyperkalemia. Additional history from medics. It turns out the initial call happened at about 730 or 7:40 p.m. tonight. When he arrived here was already approximately 9:00 p.m.. This would suggest more than an hour, almost 80 minutes of down time. (longer the bowl was initially reported by medics on their prior to arrival calls). Although this patient did have a witnessed collapse and did receive excellent ACLS care from his EMS team, and he did have VFib which is a potentially salvageable rhythm for a lot of his arrest, by the time he arrived here he was in PEA. Bedside cardiac ultrasound confirmed no cardiac activity. Given prolonged down time in this 84-year-old male with no cardiac activity on the monitor, in consultation with the resuscitating team, we realize that likelihood of meaningful neurologic recovery was negligible. Further attempts at CPR were futile. Even if we were able to achieve ROSC for this patient, he would be highly likely to have suffered and a severe anoxic brain injury. CPR was discontinued at 9:06 p.m.. I met with the patient's family. This includes his , I met with the patient's family, including his , his son, his daughter. Subsequently his 2nd son, Zurdo. Subsequently his granddaughter arrived as well. I brought them to the patient's bedside so they could be with the patient. worker's compensation claims examiner was contacted and released the body. He does not feel autopsy is indicated. Patient is a organ donor. Family would be interested in cornea donation. Nurses contacted [facility]. Discharge Plan Discharge Clinical Impression: Cardiac arrest Patient Disposition: Date/Time: 01/15/25 21:06 Procedures Ultrasound Cardiac exam #1: Anatomical areas examined: subxiphoid Indications: cardiac arrest Exam type: limited transthoracic echocardiogram Findings: other (No cardiac activity. No pericardial effusion.) Impression: other (No pericardial effusion. No cardiac activity. He does have bilateral lung sliding with [id number] ventilations. No pneumothorax)
--- OUTSIDE RECORDS SUMMARY | 2025-01-15 21:26 | XMS_ITS | Clinical Summary ---
Author Organization [facility] Address [address] , [address] [place] [address] Phone Care Team Providers Care Mobile Lounge Driver Name Role Phone Clyde Frank MD Conditions or Problems Problem Name Problem Code Onset Date Status Entry Date Provider Comment Standard Description Annotate Neuropathic pain 999144533 (SNOMED CT) Active 12/19 Clyde Frank MD Neuropathic pain Peripheral polyneuropathy 161084161 (SNOMED CT) Active 12/19 Clyde Frank MD Peripheral nerve disease Medications Medication Instructions Start Date Stop Date Generic Name NDC Provider GABAPENTIN 300 MG CAPS Take 2 capsule by mouth three times a day gabapentin [id number] Clyde Frank MD GABAPENTIN 600 MG TABS Take 1 tablet by mouth three times a day PLEASE CALL TO SCHEDULE AN APPOINTMENT: [phone] gabapentin [id number] Clyde Frank MD GABAPENTIN 300 MG CAPS Take 2 capsule by mouth three times a day gabapentin [id number] Clyde Frank MD VITAMIN B-12 1000 MCG TABS Take 1 tablet by mouth once a day cyanocobalamin (vitamin b-12) [id number] Mary Iniguez [employer]NER, AAMA GABAPENTIN 300 MG CAPS Take 2 capsule by mouth three times a day gabapentin [id number] Akbar Nava LPN GABAPENTIN 300 MG CAPS Take 2 capsule by mouth three times a day TAKE ONE CAPSULE BY MOUTH THREE TIMES DAILY gabapentin [id number] Clyde Frank MD Medications Administered No information [...] Procedures Code Procedure Name Date Entry Date [facility]-[id number] Documentation of current medicatio ns ORDERS Homocysteine ORDERS Methylmalonic Acid Serum (MMA) ORDERS Patient Instructions Vital Signs No information available. Immunizations No information available. Advance Directives No information available.
--- NOTE | 2025-01-16 00:21 | ED.NURSE ---
Ryne Howell and [facility] in contact with each other about donation. Dante storing body for [facility] until they are able to harvest
--- OUTSIDE RECORDS SUMMARY | 2025-01-16 13:38 | XMS_ITS | Clinical Summary ---
Author Organization [employer] [facility] Address [address] [place] [address] Care Team Providers Care Med Dir Name Role Phone Braden Ramirez MD Primary Care Provider Allergies Active Allergy Reactions Criticality Noted Date Comments Pregabalin Edema 06/25/2021 On 150 mg twice daily. Mqiucln-Udt-Pae Reductase Inhibitors Myalgia 12/30/2019 Pravastain, atorvastatin. 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 05/27/2010 05/15/2011 Overview (05/27/2010): INR Goal Range: 1.5 - 2.5 Lumbosacral spondylosis without myelopathy 09/21/2008 10/23/2020 Encounters Date Type Department Care Team Description 01/13/2025 Refill [facility] [address] [place] [address] Braden Ramirez MD Refill Request (Losartan, Gabapentin) 01/12/2025 Orders Only [facility] Scanner 1 scan: (1-Ord) INCOMING RECORDS-PATHOLOGY, TAREEN DERMATOLOGY, 01/12/2025 01/11/2025 1:00 PM CDT Office Visit [facility] [address] [facility] [address] [place] [address] Denise Waters, Derm Problem 01/11/2025 Travel 01/10/2025 Anticoagulation (warfarin) [facility] [address] [place] [address] Nurse, Kiet Anticoag Anticoagulation (Initial Edu) 01/09/2025 2:30 PM CDT Office Visit [facility] [address] [facility] [address] [place] [address] Jair Helm MD, PhD CV Valve Est (INPERSON:VALVE EST: 30DAY S/P TAVR, LABS ECHO CT MORPH PRIOR, NEEDS EKG, KCCQ12, 5MWALK, LETTER GIVEN, HJK//Pt states he has been having dizzy spells everyday recently) 01/09/2025 Telephone [facility] [address] [place] [address] Braden Ramirez MD Anticoagulation (Target End Date ) 01/09/2025 Telephone [facility] [address] [place] [address] Braden Ramirez MD Anticoagulation (Anticoagulation Orders ) 01/09/2025 Travel 12/30/2024 1:00 PM CDT Ancillary Procedure [facility] [address] [facility] [address] [place] [address] 12/30/2024 11:00 AM CDT Orders Only [facility] [address] [facility] [address] [place] [address] Lab 12/30/2024 10:00 AM CDT Ancillary Procedure [facility] [address] [facility] [address] [place] [address] 12/30/2024 Travel 12/26/2024 Telephone [facility] [address] [place] [address] Braden Ramirez MD Refill Request (losartan (COZAAR) 50 mg tablet) 12/08/2024 Telephone [facility] [address]55 [facility] [address] [place] [address] Mayra Solano PA Questions (RE; OV yesterday) 12/07/2024 3:00 PM CDT Orders Only [facility] [address] [facility] [address] [place] [address] Lab 12/07/2024 1:30 PM CDT Office Visit [facility] [address] [facility] [address] [place] [address] Mayra Solano PA Follow Up (POST HOSP 4-6WKS F/U [facility] 11/08. Dx: Severe aortic stenosis [I35.0] PT states feeling ok. No cardiac symptoms today. His incision is sore and he says he think something is leaking in there.) 12/07/2024 Travel 12/05/2024 10:30 AM CDT Office Visit [facility] [address] [place] [address] Braden Ramirez MD Hospital F/U (ANW, 11/30/2024 - 12/01/2024, TVAR) 12/05/2024 Travel 12/03/2024 Telephone [facility] [address] [place] [address] Rosalva Rosenthal, DEEL free (Incoming Zio call that pt had 13.9 seconds of complete heart block HR 50-51 at 0015 on 12/03/2024) 12/03/2024 Telephone [facility] [address] [place] [address] Rosalva Rosenthal RN free (Auto-triggered for 13.9 seconds complete heart block HR 50-51) 12/02/2024 Patient Outreach [facility] [address] [place] [address] Vivian Llamas, RN Primary RN Care Management (Lace 38); Hospital F/U 11/30/2024 1:22 PM CDT - 12/01/2024 12:00 PM CDT Hospital Encounter [facility] [address] [place] [address] Jair Helm MD, PhD Severe aortic stenosis (Primary Dx) Discharge Disposition: Home Self Care 11/30/2024 Travel 11/29/2024 Orders Only [facility] [address] [place] [address] Alice Ch PA <No scans attached> 11/29/2024 Telephone [facility] [address] [facility] [address] [place] [phone] Heather Francisco RN Procedure (TAVR 11/30) 11/28/2024 Telephone [facility] 1455 [facility] [address] [place] [address] Mayra Solano PA Medication Management (Repatha) 11/22/2024 10:30 AM CDT Office Visit [facility] [address] [facility] [address] [place] [address] Alice Ch PA CV Valve Est (INPERSON:VALVE EST:PRE-OP TAVR, LABS PRIOR,NEEDS EKG,KCCQ12, 5M WALK,LETTER SENT, HJK//PCP: Braden Ramirez MD/) 11/22/2024 10:00 AM CDT Orders Only [facility] [address] [place] [phone] Lab (/) 11/22/2024 Travel 11/17/2024 Travel 11/10/2024 Telephone [facility] [address] [place] [phone] Patrick Wilson MD Health Maintenance Update (Post Multidisciplinary Valve Conference Discussion /) 11/10/2024 Telephone [facility] [address] [facility] [address] [place] [address] Jair Helm MD, PhD Results (CT OVER READ NOTIFICATION) 11/08/2024 10:23 AM CDT - 11/08/2024 8:30 PM CDT Hospital Encounter [facility] [address] [place] [address] Jair Helm MD, PhD Severe aortic stenosis (Primary Dx); Cardiovascular symptoms Discharge Disposition: Home Self Care 11/08/2024 Travel 10/31/2024 Refill [facility] [address] [place] [address] Braden Ramirez MD Refill Request (Repatha [employer] ) 10/25/2024 1:00 PM CDT Telemedicine [facility] [address] [facility] [address] [place] [phone] [facility] 10/25/2024 Telephone [facility] [address] [facility] [address] [place] [phone] Jair Helm MD, PhD Prior Authorization 10/24/2024 1:30 PM CDT Office Visit [facility] [address] [place] [address] [address] [place] [address] Jair Helm MD, PhD Consult (INPERSON:VALVE NEW:, CT'S DONE PRIOR(10/12), NEEDS EKG,KCCQ12, 5M WALK: (6.41 sec, 6.29 sec, 5.65 sec.),LETTER SENT, JOHNK REFERRAL CASE. 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 Ascending aorta: 42 x 42 mm and area height ratio of 7.8 cm2/m Descending thoracic aorta: 30 x 29 mm. FOR PATIENT: Results are automatically released to your [employer]) account once available, in compliance with federal regulations. This means that you may see your results before your provider has had a chance to review them. Please allow 2-3 business days for your provider to comment on the results. 12/30/2024 Dank Callaway MD General Cafeteria Manager Reddy Regan MD, [facility] Alice PICKARD CT Fi nal Result * [...] conjunction with the services provided by the [facility] ([facility]). INDICATION: Cardiac over-read. FINDINGS: Aorta: This is [...] in conjunction with the services provided bythe [facility] ([facility]). INDICATION: Cardiac over-read. FINDINGS: Aorta: This is [...] COUNT 3.9 3.8 - 10.8 Thousand/u L [facility] ( RED BLOOD CELL COUNT 4.17(L) 4.20 - 5.80 Million/uL [facility] ( HEMOGLOBIN 12.2(L) 13.2 - 17.1 g/dL [facility] ( HEMATOCRIT 38.1(L) 38.5 - 50.0 % [facility] ( MCV 91.4 80.0 - 100.0 fL [facility] ( MCH 29.3 27.0 - 33.0 pg [facility] ( MCHC 32.0 32.0 - 36.0 g/dL [facility] ( Comment: For adults, a slight decrease in the calculated MCHC value (in the range of 30 to 32 g/dL) is most likely not clinically significant; however, it should be interpreted with caution in correlation with other red cell parameters and the patient's clinical condition. RDW 13.7 11.0 - 15.0 % [facility] ( PLATELET COUNT 155 140 - 400 Thousand/u L [facility] ( MPV 9.6 7.5 - 12.5 fL [facility] ( Blood BLOOD SPECIMEN / Unknown 12/30/2024 10:36 AM CDT 12/30/2024 10:36 AM CDT Mayra PICKARD HEMATOLOGY Final Res ult [facility] [address] [place] [address], [facility] ( [address] [place] [address] * (ABNORMAL) PRO-BNP (12/30/2024 10:36 AM CDT) Only the most recent of3 resultswithin the time period is included. Pathologist [facility] NT PROBNP 482(H) <450 pg/mL [facility] Blood BLOOD SPECIMEN / Unknown 12/30/2024 10:36 AM CDT 12/30/2024 10:36 AM CDT Mayra PICKARD SEND OUTS Final Res ult Performing Organization Address [facility]/ZIP Co de Phone Number [facility] [address] [place] [address], [facility] [address] [place] [address] * (ABNORMAL) BASIC METABOLIC PANEL (12/30/2024 10:36 AM CDT) Only the most recent of6 resultswithin the time period is included. Pathologist [facility] GLUCOSE 86 65 - 99 mg/dL [facility] Comment: Fasting reference interval UREA NITROGEN (BUN) [...] CHEMISTRY Final Res ult Performing Organization Address City/[facility]/ZIP Co de Phone Number [facility] [address] [place] [address], [facility] [address] [place] [address] * ECHO TTE LIMITED W CONTRAST (12/30/2024 [...] Tech: VERONICA Referring MD: ALICE CH Site: [facility] Reading Location: Mobile-OP Patient Location: Outpatient. [...] 2 cc ml diluted Definity, lot #[id number], [facility]# [id number] was administered peripherally to enhance visualization of [...] Tech: VERONICA Referring MD: ALICE CH Site: [facility] Reading Location: Mobile-OP Patient Location: Outpatient. [...] 2 cc ml diluted Definity, lot #[id number], [facility]#[id number] was administered peripherally to enhance visualization of allleft ventricular segments. . This study was interpreted by an IAC accredited facility. Final Alice Ch PA ECHO ORD Fi nal Result * Event Monitor (real-time) (12/29/2024) Narrative Lew [facility] - 12/29/2024 Extended holter placed on this patient at [facility] on 5 for 14 days. Report will be found in the Procedures tab approximately 7-10 days after end of monitor period. us Harpreet Raines [facility] ORD Final Result * GLUCOSE METER (12/01/2024 8:01 AM CDT) GLUCOSE METER 97 65 - 100 mg/dL 12/01/2024 8:16 AM CDT [facility] Blood BLOOD SPECIMEN / Unknown 12/01/2024 8:01 AM CDT 12/01/2024 8:16 AM CDT us Jair Helm MD, PhD CHEMISTRY Fin al Result [facility] [employer] LOC[facility] WITHIN [facility] [address], [place] [address], [place] * MAGNESIUM (12/01/2024 6:00 AM CDT) Only the most recent of2 resultswithin the time period is included. MAGNESIUM 1.8 1.6 - 2.4 mg/dL 12/01/2024 7:25 AM CDT [facility] Blood BLOOD SPECIMEN / Unknown Venipuncture / Unknown 12/01/2024 6:00 AM CDT 12/01/2024 6:52 AM CDT Jair Helm MD, PhD CHEMISTRY Fin al Result Performing Organization Address [facility] Co de Phone Number [facility] [address] [place] [address], [place] * SCAN-CARDIAC STRIP (12/01/2024 2:51 AM CDT) Scanner OTHER Final Result * (ABNORMAL) ACTIVATED CLOTTING TIME [id number] ACT (11/30/2024 4:55 PM CDT) ACTIVATED CLOTTING TIME, POCT 267(H) 74 - 125 sec 11/30/2024 11:41 PM CDT [facility] Blood BLOOD SPECIMEN / Unknown 11/30/2024 4:55 PM CDT 11/30/2024 11:41 PM CDT Jair Helm MD, PhD HEMATOLOGY Fin al Result Performing Organization Address City/[facility]/ZIP Co de Phone Number [facility] [address] [place] [address], [place] * CVL TAVR (11/30/2024 4:40 PM CDT) Anatomical Region Laterality Modality X-Ray Angiograph y 11/30/2024 4:40 PM CDT Narrative Procedure Note Jair Helm MD, PhD - 11/30/2024 5:49 PM CDT DATE OF SERVICE: 11/30/24 PROCEDURE: Transcatheter aortic valve implantation. PREOPERATIVE DIAGNOSIS: Severe aortic stenosis POSTOPERATIVE DIAGNOSIS: s/p TAVR OPERATORS: Jair Helm MD, PhD Bhupinder Alcaraz, [facility] Faisal Adan MD DESCRIPTION The risks, benefits [...] deployment. Post-dilatation was performed with a True [id number]. There was no evidence of significant AR. The mean gradient fell to6.0 mmHg. The arterial access sites were closed using the ProGlidesutures. The pacemaker was removed as there was no conduction delay.There were no complications. The patient was transferred to anesthesiarecovery unit in hemodynamically stable condition. Jair Helm MD, PhD Client Application Support Specialist [facility] [address], [address] [place] [address] O: [phone] F: [phone] Transcriptions Jair Helm MD, PhD - 12/13/2024 4:36 PM CDT [facility] Cardiac Catheterization Report Name: LARRY PERES Event Date: 11/30/2024 16:40 [employer] ID #: [id number] [facility] #: [id number] Patient Class: Outpatient Diagnostic Physician: JAIR HELM [facility] Interventional Physician: DEBI HELMANTINOS [facility] Referring Physician: Primary Care Physician: BRADEN [...] with primary physician * Follow up with room service manager Consent & [place] Protocol The risks, benefits, and alternatives of the procedure were discussed withthe patient and written informed consent was obtained. [place] protocol was followed. TIME OUT conducted just prior tostarting procedure confirmed patient identity, site/side, procedure,patient position, and availability of correct equipment and implants (ifapplicable). Staff Name Title Jair Helm Client Application Support Specialist Loco Malone Fellow Yoana Watts RN Shelby Pringle RN Khalida Ohara RTR Monitor Sanjay Moreno CVT Day Light Relief Operator Charlie Harding CVT Day Light Relief Operator Jerri Chavez RN Nurse Procedures ? Ultrasound [...] ml Subcut Jair Helm OwaisShakir 16:46 Heparin 87806 units IV Jair Helm Le[place] RN 16:48 1% Lidocaine 10 ml Subcut Jair Helm Konstantinos 16:50 Fentanyl 25 mcg IV Jair Helm [place] RN 16:50 Versed 0.5 mg IV [...] RN 17:34 Neosynephrine (Phenylephrine) 100 mcg IV Robert Helm Erin M RN I personally monitored the patient?s conscious sedation during theprocedure. Conscious sedation starts with the first sedation medication dose ofFentanyl or Versed and ends when the procedure is completed, the patientis stable for recovery status, and the physician or other qualified healthcare professional providing the sedation ends personal xrlfvpojspefgm-cw-stxy time with the patient. The medications listed above were verbally ordered by me and read back tome as documented above. Refer to the procedure log report for additional case details. electronically signed on 12/13/2024 4:36:46 PM with status of Final Jair Helm MD [facility] [address] [place] [address] (p) [phone](f) us Jair Helm MD, PhD CV IMAGING Ga nguyen Result - Final * RBC W/O TYPE & SCREEN (11/30/2024 2:15 PM CDT) Pathologist [facility] 2 11/30/2024 2:1 5 PM CDT [facility]-CENTRAL LAB BLOOD BANK Blood BLOOD SPECIMEN / Unknown 11/30/2024 1:51 PM CDT us Jair Helm MD, PhD BLOOD BANK Ga nguyen Result - Final Performing Organization Address [facility] Co de Phone Number [facility] [employer]-CENTRAL LAB BLOOD BANK [address] [place] [address], * RED BLOOD CELLS EA UNIT (11/30/2024 2:00 PM CDT) Only the most recent of2 resultswithin the time period is included. CROSSMATCH Compatible Compatible [facility]TRAL LAB BLOOD BANK PRODUCT BLOOD TYPE O Rh Positive [facility] PRODUCT ID NUMBER [id number] [facility] LAB BLOOD BANK PRODUCT STATUS /Relea sed [facility] LAB BLOOD [facility]ANK PRODUCT DESCRIPTION RBC -1 LR [facility]AL LAB BLOOD BANK PRODUCT CODE [id number] [facility] Jair Helm MD, PhD BLOOD BANK Ga nguyen Result - Final Performing Organization Address [facility]/ZIP Co de Phone Number [facility] [employer]-CENTRAL LAB BLOOD BANK [address] [place] [address], * EXTRA TUBE LAVENDER (11/30/2024 1:54 PM CDT) Blood BLOOD SPECIMEN / Unknown Non-Lab Venipuncture / Unknown 11/30/2024 1:54 PM CDT 11/30/2024 2:19 PM CDT Jair Helm MD, PhD LABORATORY Fin al Result Performing Organization Address [facility] Co de Phone Number [facility] [employer]-CENTRAL LABORATORY [address] [place] [address], [place] * EXTRA TUBE GOLD/SST (11/30/2024 1:54 PM CDT) Only the most recent of2 resultswithin the time period is included. Blood BLOOD SPECIMEN / Unknown Non-Lab Venipuncture / Unknown 11/30/2024 1:54 PM CDT 11/30/2024 2:19 PM CDT Jair Helm MD, PhD LABORATORY Fin al Result [facility]ORATORY-CENTRAL LABORATORY [address] [place] [address], * TYPE & SCREEN (11/30/2024 1:54 PM CDT) Only the most recent of2 resultswithin the time period is included. ABORH O Rh Positive 11/30/2024 2:50 PM CDT [facility]ENTRAL LAB BLOOD BANK ANTIBODY SCREEN Negative Negative 11/30/2024 2:50 PM CDT [facility] SPECIMEN EXPIRATION DATE/TIME 12/03/24 23:59 11/30/2024 2:50 PM CDT [facility] BLOOD BANK Blood BLOOD SPECIMEN / Unknown Venipuncture / Unknown 11/30/2024 1:54 PM CDT 11/30/2024 2:08 PM CDT Alice PICKARD BLOOD BANK Fi nal Result Performing Organization Address City/[facility]/ZIP Co de Phone Number [facility] BLOOD BANK [address] [place] [address], * Glucose, Fasting (11/30/2024 1:54 PM CDT) Pathologist [facility] GLUCOSE 95 70 - 99 mg/dL 11/30/2024 2:42 PM CDT [facility] Blood BLOOD SPECIMEN / Unknown Venipuncture / Unknown 11/30/2024 1:54 PM CDT 11/30/2024 2:08 PM CDT Alice PICKARD CHEMISTRY Fi nal Result [facility] LABORATORY-CENTRAL LABORATORY 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 [employer] Adventures[facility]TRAL LAB BLOOD BANK Blood BLOOD SPECIMEN / Unknown Non-Lab Venipuncture / Unknown 11/22/2024 11:45 AM CDT 11/22/2024 11:52 AM CDT Jair Helm MD, PhD BLOOD BANK Fin al Result Performing Organization Address City/[facility]/ZIP Co de Phone Number [facility] [address] [place] [address], * ALBUMIN (11/22/2024 11:45 AM CDT) ALBUMIN 4.0 4.0 - 4.9 g/dL 11/22/2024 12:40 PM CDT [facility] Blood BLOOD SPECIMEN / Unknown Non-Lab Venipuncture / Unknown 11/22/2024 11:45 AM CDT 11/22/2024 11:52 AM CDT Patrick Wilson MD CHEMISTRY Final Result Performing Organization Address [facility] Co de Phone Number [facility] [address] [place] [address], * CVL CORONARY ANGIOGRAM POSS PCI (11/08/2024 3:23 PM CDT) Anatomical Region Laterality Modality X-Ray Angiograph y, X-Ray Angiography 11/08/2024 3:23 PM CDT Narrative Transcriptions Jair Helm MD, PhD - 11/08/2024 6:34 PM CDT [facility] Cardiac Catheterization Report Name: LARRY PERES Event Date: 11/08/2024 15:23 [employer] ID #: [id number] GEN #: [id number] Patient Class: Outpatient Diagnostic Physician: JAIR HELM [facility] Referring Physician: Date: 1940 Gender: Male [...] with primary physician * Follow up with room service manager Consent & [place] Protocol The risks, benefits, and alternatives of the procedure were discussed withthe patient and written informed consent was obtained. [place] protocol was followed. TIME OUT conducted just prior tostarting procedure confirmed patient identity, site/side, procedure,patient position, and availability of correct equipment and implants (ifapplicable). Staff Name Title Jair Helm Diagnostic Transmission Line Engineer Sonja Saeed RN Nurse Chucho, Carmen CVT Scrub Rosario Bateman CVT Monitor Cassius Morrow CVT Day Light Relief Operator Betsey, Sixto CVT Scrub Procedures ? Ultrasound [...] healthcare professional providing the sedation ends personal ctohoxdmblzwsw-as-msjx time with the patient. The medications listed above were verbally ordered by me and read back tome as documented above. Refer to the procedure log report for additional case details. 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
--- OUTSIDE RECORDS SUMMARY | 2025-01-16 13:38 | XMS_ITS | Clinical Summary ---
Author Organization [facility] Address [address] [place] [address] Care Team Providers Care Special Delivery Clerk Name Role Phone Braden Ramirez Primary Care Provider [phone] Allergies No known active allergies Medications omeprazole [...] this topic Medical Devices Implanted Type Area Clerical Receptionist Device Identifier Shelf Expiration Date Model / Serial / Lot Graft Bone Infuse Bmp Xsm [id number] - [id number] Implanted:Qt y: 1 on 10/07/2023 by Miguel Warren MD at [facility] Bone/Tissue Synthetic Right: Spine Lumbar [employer] 09/16/2024 [id number] / / [id number] Graft Bone Magnetos 1-2 Mm 10 Cc Allograft Gran 703-038-Us - [id number] Implanted:Qt y: 1 on 10/07/2023 by Miguel Warren MD at [facility] Bone/Tissue Synthetic N/A: Spine Lumbar [employer] [id number] 09/18/2027 703-038-US / / [id number] Imp Spi Interbody Medt [address] Long 11mm [id number] - [id number] Implanted:Qt y: 1 on 03/25/2023 by Miguel Warren MD at [facility] Metallic Hardware/Anc hor Left: Spine Lumbar [employer] [id number] 04/25/2030 [id number] / / [id number] Imp Spi Interbody Medt [address] Long 11mm [id number] - [id number] Implanted:Qt y: 1 on 06/29/2023 by Miguel Warren MD at [facility] Metallic Hardware/Anc hor N/A: Spine Lumbar [employer] 03/06/2031 [id number] / / [id number] Imp Spi Interbody Medt [address] Long 11mm 7412759 - [id number] Implanted:Qt y: 1 on 10/07/2023 by Miguel Warren MD at [facility] Metallic Hardware/Anc hor N/A: Spine Lumbar [employer] 10/29/2030 [id number] / / [id number] Imp Scr Medt Tsrh 3dx Og Thin 8.5x45mm Ti [id number] - [id number] Implanted:Qt y: 1 on 10/07/2023 by Miguel Warren MD at [facility] Metallic Hardware/Anc hor N/A: Spine Lumbar [employer] [id number] / / NA Imp Scr Medt Tsrh 3dx Og Thin 8.5x50mm Ti [id number] - [id number] Implanted:Qt y: 1 on 10/07/2023 by Miguel Warren MD at [facility] Metallic Hardware/Anc hor N/A: Spine Lumbar [employer] [id number] / / NA Imp Scr Medt Tsrh 3dx Og Thin 6.5x50mm Ti [id number] - [id number] Implanted:Qt y: 1 on 10/07/2023 by Miguel Warren MD at [facility] Metallic Hardware/Anc hor N/A: Spine Lumbar [employer] [id number] / / NA Imp Scr Medt Tsrh 3dx Og Thin 7.5x45mm Ti [id number] - [id number] Implanted:Qt y: 1 on 10/07/2023 by Miguel Warren MD at [facility] Metallic Hardware/Anc hor N/A: Spine Lumbar [employer] [id number] / / NA Tsrh 8.5x55 Screw Implanted:Qt y: 2 on 10/07/2023 by Miguel Warren MD at [facility] Metallic Hardware/Anc hor N/A: Spine Lumbar [employer] [id number] / / NA Imp Scr Set Medt Tsrh 3dx Flush Break [id number] - [id number] Implanted:Qt y: 6 on 10/07/2023 by Miguel Warren MD at [facility] Metallic Hardware/Anc hor N/A: Spine Lumbar [employer] 9284029 / / NA Imp Connector Medt Tsrh 3dx Small 2902894 - [id number] Implanted:Qt y: 5 on 10/07/2023 by Miguel Warren MD at [facility] Metallic Hardware/Anc hor N/A: Spine Lumbar [employer] [id number] / / NA Imp Connector Medt Tsrh 3dx Med 2452662 - [id number] Implanted:Qt y: 1 on 10/07/2023 by Miguel Warren MD at [facility] Metallic Hardware/Anc hor N/A: Spine Lumbar [employer] 5578963 / / Imp Gurvinder Medt Tsrh Prebent 05.0cm 8925157 - [id number] Implanted:Qt y: 1 on 10/07/2023 by Miguel Warren MD at [facility] Metallic Hardware/Anc hor N/A: Spine Lumbar [employer] 9015214 / / NA Gurvinder Precut 4.5cmx5.5mm - [id number] Implanted:Qt y: 1 on 10/07/2023 by Miguel Warren MD at [facility] Metallic Hardware/Anc hor N/A: Spine Lumbar [employer] [id number] / / NA Explanted Type Area Clerical Receptionist Device Identifier Shelf Expiration Date Model / Serial / Lot Imp Scr Set Medt Tsrh 3dx Flush Break [id number] - [id number] Implanted:Qty : 6 on 06/29/2023 by Miguel Warren MD at [facility] Explanted:Qty : 6 on 10/07/2023 by Miguel Warren MD at [facility] Metallic Hardware/An chor N/A: Spine Lumbar [employer] 7278062 / / Imp Connector Medt Tsrh 3dx Small 5474947 - [id number] Implanted:Qty : 6 on 06/29/2023 by Miguel Warren MD at [facility] Explanted:Qty : 6 on 10/07/2023 by Miguel Warren MD at [facility] Metallic Hardware/An chor N/A: Spine Lumbar [employer] [id number] / / Imp Gurvinder Medt Ts Prebent 06.0cm 6540733 - [id number] Implanted:Qty : 2 on 06/29/2023 by Miguel Warren MD at [facility] Explanted:Qty : 2 on 10/07/2023 by Miguel Warren MD at [facility] Metallic Hardware/An chor N/A: Spine Lumbar [employer] [id number] / / Tsrh 7.5x60mm Screw Implanted:Qty : 1 on 06/29/2023 by Miguel Warren MD at [facility] Explanted:Qty : 1 on 10/07/2023 by Miguel Warren MD at [facility] Metallic Hardware/An chor N/A: Spine Lumbar [employer] [id number] / / Imp Scr Medt Ts 3dx Og Thin 6.5x50mm Ti [id number] - [id number] Implanted:Qty : 2 on 03/25/2023 by Miguel Warren MD at [facility] Explanted:Qty : 2 on 10/07/2023 by Miguel Warren MD at [facility] Metallic Hardware/An chor Left: Spine Lumbar [employer] [id number] / / Imp Scr Medt Tsrh 3dx Og Thin 6.5x45mm Ti [id number] - [id number] Implanted:Qty : 2 on 03/25/2023 by Miguel Warren MD at [facility] Explanted:Qty : 2 on 10/07/2023 by Miguel Warren MD at [facility] Metallic Hardware/An chor Left: Spine Lumbar [employer] [id number] / / Imp Scr Set Medt Tsrh 3dx Flush Break [id number] - [id number] Implanted:Qty : 4 on 03/25/2023 by Miguel Warren MD at [facility] Explanted:Qty : 4 on 10/07/2023 by Miguel Warren MD at [facility] Metallic Hardware/An chor Left: Spine Lumbar [employer] 1812741 / / Imp Connector Medt Tsrh 3dx Small 7274288 - [id number] Implanted:Qty : 4 on 03/25/2023 by Miguel Warren MD at [facility] Explanted:Qty : 4 on 10/07/2023 by Miguel Warren MD at [facility] Metallic Hardware/An chor Left: Spine Lumbar [employer] [id number] / / Imp Gurvinder Medt Tsrh Prebent 03.5cm 7804291 - [id number] Implanted:Qty : 2 on 03/25/2023 by Miguel Warren MD at [facility] Explanted:Qty : 2 on 10/07/2023 by Miguel Warren MD at [facility] Metallic Hardware/An chor Left: Spine Lumbar [employer] 7202942 / / Imp Scr Medt Tsrh 3dx Og Thin 7.5x50mm Ti [id number] - [id number] Implanted:Qty : 3 on 06/29/2023 by Miguel Warren MD at [facility] Explanted:Qty : 3 on 10/07/2023 by Miguel Warren MD at [facility] Metallic Hardware/An chor N/A: Spine Lumbar [employer] [id number] / / Imp Scr Medt Tsrh 3dx Og Thin 7.5x45mm Ti [id number] - [id number] Implanted:Qty : 2 on 06/29/2023 by Miguel Warren MD at [facility] Explanted:Qty : 2 on 10/07/2023 by Miguel Warren MD at [facility] Metallic Hardware/An chor N/A: Spine Lumbar [employer] [id number] / / Insurance MEDICARE [facility] [employer] [facility] [employer] Advance Directives For more information, please contact: [phone] * Full Code (Latest Code Status on [...] patie nt/ legal decision maker Care Teams Special Delivery Clerk Relationship Specialty Start Date End Date Braden Ramirez [address] [place] [address] PCP - General Family Medicine 06/22/23
--- OUTSIDE RECORDS SUMMARY | 2025-01-16 13:38 | XMS_ITS | Clinical Summary ---
Author Organization [facility] Address [address] , [address] [place] [address] Phone Care Team Providers Care Communications Operator Name Role Phone Clyde Frank MD Conditions or Problems Problem Name Problem Code Onset Date Status Entry Date Provider Comment Standard Description Annotate Neuropathic pain [id number] (SNOMED CT) Active 12/19 Clyde Frank MD Neuropathic pain Peripheral polyneuropathy [id number] (SNOMED CT) Active 12/19 Clyde Frank MD Peripheral nerve disease Medications Medication Instructions Start Date Stop Date Generic Name NDC Provider GABAPENTIN 300 MG CAPS Take 2 capsule by mouth three times a day gabapentin [id number] Clyde Frank MD GABAPENTIN 600 MG TABS Take 1 tablet by mouth three times a day PLEASE CALL TO SCHEDULE AN APPOINTMENT: [phone] gabapentin [phone] Clyde Frank MD GABAPENTIN 300 MG CAPS Take 2 capsule by mouth three times a day gabapentin [id number] Clyde Frank MD VITAMIN B-12 1000 MCG TABS Take 1 tablet by mouth once a day cyanocobalamin (vitamin b-12) [id number] Mary Iniguez PRESS TENDER, AAMA GABAPENTIN 300 MG CAPS Take 2 capsule by mouth three times a day gabapentin [id number] Akbar Nava LPN GABAPENTIN 300 MG CAPS Take 2 capsule by mouth three times a day TAKE ONE CAPSULE BY MOUTH THREE TIMES DAILY gabapentin [id number] Clyde Frank MD Medications Administered No information [...] Procedures Code Procedure Name Date Entry Date [facility] [email or web address]]-[id number] Documentation of current medicatio ns ORDERS Homocysteine ORDERS Methylmalonic Acid Serum (MMA) ORDERS Patient Instructions Vital Signs No information available. Immunizations No information available. Advance Directives No information available.
== END 2025-01-16 02:28 | disposition expired ==
PROVIDERS: Emergency Provider Emergency Medicine; PCP Family Medicine
DX: I46.9 Cardiac arrest, cause unspecified (principal)
CPT/HCPCS: 92950; 96361; 96374; 96375; 99285; 99291; G0390; J0171; J7030